=== PATIENT | male | born 1955 | race African-American/Black ===

== ENCOUNTER 2022-06-07 14:20 | Inpatient (IN) | payer MEDICAID ==
[~2022-06-07] VITALS: Ht 182.9 cm; Wt 79.4 kg
[2022-06-07 14:20] VITALS: BP_SYST 186
--- NOTE | 2022-06-07 14:20 | NUR ---
BROUGHT BACK TO BED #8 AND TRIAGED. REPORT GIVEN TO MADI.
--- NOTE | 2022-06-07 14:25 | NUR ---
BIB SELF FROM HOME WITH C/O URINARY PROBLEMS, FLANK PAIN, URINARY RETENTION, AN INDWELLING CATHETHER THAT WAS PLACED IN FEB 2022. HX - URINARY RETENTION. PT IS AAX04, VSS, NAD, BREATHING IS EVEN AND UNLABORED, PT IS ON CARDAIC MONITOR SHOWING NSR. SAFETY AND COMFORT MEASURES IN PLACE. PENDING MD RICE AND ORDERS.
--- NOTE | 2022-06-07 14:26 | NUR ---
AT BEDSIDE EXAMINING THE PT.
--- NOTE | 2022-06-07 14:27 | NUR ---
DR. MORALES INSTRUCTED TO HOLD OFF ON GIVING KAYEXALATE UNTIL THE PT IS READY FOR TRANSFER TO THE ICU UNIT.
[2022-06-07] MEDS ORDERED: IBUPROFEN 800 MG TABLET PO ONE (14:45)
[2022-06-07 15:05] LABS: BASOPHILS % (AUTO) 0.3 % (0.0-2.0); EOSINOPHILS # (AUTO) 0.1 K/uL (0.0-0.4); EOSINOPHILS % (AUTO) 0.5 % (0.0-4.0); HEMATOCRIT 28.9 % (36-54); HEMOGLOBIN 9.5 g/dL (14.0-18.0); LYMPHOCYTES # (AUTO) 0.9 K/uL (1.0-5.5); LYMPHOCYTES % (AUTO) 8.3 % (20.5-51.5); MEAN CORPUSCULAR HEMOGLOBIN 31 pg (27-31); MEAN CORPUSCULAR HGB CONC 33 % (32-36); MEAN CORPUSCULAR VOLUME 94 fL (79.0-98.0); MONOCYTES # (AUTO) 1.1 K/uL (0.0-1.0); MONOCYTES % (AUTO) 10.1 % (1.7-9.3); NEUTROPHILS # (AUTO) 8.5 K/uL (1.8-7.7); NEUTROPHILS % (AUTO) 80.8 % (40.0-70.0); PLATELET COUNT (AUTO) 252 K/uL (130-430); RED BLOOD CELL COUNT(AUTO) 3.08 MIL/uL (4.2-6.2); RED CELL DISTRIBUTION WIDTH 15.3 % (9.0-15.0); WHITE BLOOD COUNT (AUTO) 10.5 K/uL (4.8-10.8)
[2022-06-07 15:20] LABS: CREATININE 3.92 mg/dL (0.55-1.30)
[2022-06-07 15:25] LABS: ALBUMIN 2.5 g/dL (3.4-4.8); TOTAL BILIRUBIN 0.4 mg/dL (0.0-1.0)
[2022-06-07 15:33] LABS: BILIRUBIN,URINE NEGATIVE (NEGATIVE); BLOOD, URINE 2+ (NEGATIVE); CLARITY/URINE CLOUDY (CLEAR); COLOR,URINE YELLOW (YELLOW); GLUCOSE,URINE TRACE (NEGATIVE); KETONES,URINE NEGATIVE (NEGATIVE); LEUKOCYTE ESTERASE ,URINE 3+ (NEGATIVE); NITRITE, URINE NEGATIVE (NEGATIVE); PH,URINE 6.5 (5.0-8.0); PROTEIN URINE 3+ (NEGATIVE); UROBILINOGEN,URINE 0.2 (0.2-1.0)
[2022-06-07 15:48] LABS: BACTERIA,URINE FEW /HPF (None Seen); MUCUS,URINE None Seen /LPF (None Seen); WBC,URINE >100 /HPF (0-3)
[2022-06-07] MEDS ORDERED: SODIUM POLYSTYRENE SULFONATE 15 GM/60 ML UDBTL PO ONE (16:00)
[2022-06-07] MEDS ORDERED: cefTRIAXone 1 GM in D5W 50 ML IV ONE (16:00)
[2022-06-07] MEDS ORDERED: NACL 0.9% 1,000 ML IV ONE (16:00)
[2022-06-07] MEDS ORDERED: cefTRIAXone 1 GM VIAL ONE (16:45)
--- NOTE | 2022-06-07 17:10 | NUR ---
NOTIFIED ED ADMITTING, KAILYN, REGARDING DR. ALTAMIRANO'S REQUEST FOR ADMISSION/TRANSFER. PER DR. ALTAMIRANO, PT IS STABLE FOR TRANSFER. WILL CONTACT PLANT TENDER REGARDING THIS MATTER. PER [facility]: [facility]
--- NOTE | 2022-06-07 17:16 | NUR ---
KAILYN, ED ADMITTING, [facility]ATED [facility] CLOS[facility] FOR THE DAY AND TO CALL ADULT BASIC EDUCATION TEACHER FOR ADMISSION AND SHE WILL FAX FACESHEET TO [facility].
[2022-06-07] MEDS ORDERED: DEXTROSE 50% JECT 50 ML DISP.SYRIN IVP PRN (18:00)
[2022-06-07] MEDS ORDERED: LORazepam 2 MG/ML VIAL IVP PRN (18:00)
[2022-06-07] MEDS ORDERED: ONDANSETRON HCL 4 MG/2 ML VIAL IVP PRN (18:00)
[2022-06-07] MEDS ORDERED: MUPIROCIN 2% TOPICAL OINTMENT 22 GM NS PRN (18:00)
[2022-06-07] MEDS ORDERED: MAGNESIUM SULFATE 50 ML IV PRN (18:00)
[2022-06-07] MEDS ORDERED: DOCUSATE SODIUM 100 MG CAPSULE PO PRN (18:00)
[2022-06-07] MEDS ORDERED: ACETAMINOPHEN 325 MG TABLET PO PRN ×2 (18:00→18:45)
[2022-06-07] MEDS ORDERED: POTASSIUM CHLORIDE 20 MEQ TAB.PRT.SR PO PRN (18:00)
[2022-06-07] MEDS ORDERED: MORPHINE 2 MG/ML INJ. SYRINGE IVP PRN ×2 (18:00)
[2022-06-07] MEDS ORDERED: METOPROLOL TARTRATE 25 MG TABLET PO ONE (18:45)
[2022-06-07] MEDS ORDERED: KETOROLAC TROMETHAMINE 30 MG VIAL IVP ONE (18:45)
[2022-06-07] MEDS ORDERED: SODIUM POLYSTYRENE SULFONATE 15 GM/60 ML UDBTL ONE (18:53)
[2022-06-07] MEDS: NACL 0.9% 1,000 ML IV SCH (19:00)
--- NOTE | 2022-06-07 20:02 | NUR ---
Admit bed requested Patient will be admitted to care of Dr. ELLIS. Admitted to TELEMETRY unit. Diagnosis URINARY TRACT INFECTION Inpatient (Yes or No) YES Observation (Yes or No) NO Orientation concerns or request close to nursing station (Yes or No) NO Covid Status NEGATIVE On vent or bipap NO Isolation requirements NO Needs a sitter NO From Home (Yes or if No enter name of facility) YES Requires Dialysis (Yes or No) NO Med Rec Completed (Yes of No) YES
[2022-06-07] MEDS ORDERED: LIDOCAINE 2% JELLY UROJECT 10 ML MM ONE (20:15)
--- NOTE | 2022-06-07 20:31 | NUR ---
PATIENT RESTING IN BED WITH FAMILY AT BEDSIDE, UPDATED ON PLAN OF CARE. PATIENT REMAINS ALERT AND ORIENTED X 4 , NO S/S OF ANY RESPIRATORY DISTRESS NOTED ABD SOFT NONTENDER TO PALPATION WITH POSITIVE BOWEL SOUNDS, IVF INFUING PER ORDER, AWARE WILL BE ADMITTED TO THE HOSPITAL. WILL CONTINUE TO MONITOR.
--- NOTE | 2022-06-07 20:49 | NUR ---
ROSARIO #[id number] INSERTED PER ORDER.
[2022-06-07] MEDS ORDERED: HEPARIN SODIUM,PORCINE 5,000 UNITS/ML VIAL SUBCUT SCH (21:00)
--- NOTE | 2022-06-07 22:40 | NUR ---
Patient continues to rest without c/o family remains at bedside, belongings list done at this time.
--- NOTE | 2022-06-07 23:19 | NUR ---
PATIENT REMAINS STABLE FOR TRANSPORT TO UNIT.
--- NOTE | 2022-06-08 | NUR ---
PT ADMITTED FROM ED, PATIENT RESTING IN BED WITH FAMILY AT BEDSIDE, PT ALERT AND ORIENTED X 4 , NO S/S OF ANY RESPIRATORY DISTRESS NOTED ABD SOFT NONTENDER TO PALPATION WITH POSITIVE BOWEL SOUNDS, PT AMBULATORY, IVF INFUING PER ORDER, AWARE WILL BE ADMITTED TO THE HOSPITAL. WILL CONTINUE TO MONITOR.
[2022-06-08 00:08] VITALS: BP_SYST 166
[2022-06-08] MEDS: ZOLPIDEM TARTRATE 5 MG TABLET PO PRN ×2 (01:01→22:00)
[2022-06-08] MEDS: cloNIDine HCL 0.1 MG TABLET PO PRN (01:02)
[2022-06-08] MEDS: NACL 0.9% 1,000 ML IV SCH ×2 (05:13→17:45)
[2022-06-08 07:35] LABS: BASOPHILS % (AUTO) 0.5 % (0.0-2.0); EOSINOPHILS # (AUTO) 0.2 K/uL (0.0-0.4); EOSINOPHILS % (AUTO) 2.8 % (0.0-4.0); HEMATOCRIT 25.4 % (36-54); HEMOGLOBIN 8.5 g/dL (14.0-18.0); LYMPHOCYTES # (AUTO) 1.4 K/uL (1.0-5.5); LYMPHOCYTES % (AUTO) 21.4 % (20.5-51.5); MEAN CORPUSCULAR HEMOGLOBIN 31 pg (27-31); MEAN CORPUSCULAR HGB CONC 33 % (32-36); MEAN CORPUSCULAR VOLUME 94 fL (79.0-98.0); MONOCYTES # (AUTO) 0.8 K/uL (0.0-1.0); MONOCYTES % (AUTO) 12.1 % (1.7-9.3); NEUTROPHILS # (AUTO) 4.1 K/uL (1.8-7.7); NEUTROPHILS % (AUTO) 63.2 % (40.0-70.0); PLATELET COUNT (AUTO) 196 K/uL (130-430); RED BLOOD CELL COUNT(AUTO) 2.71 MIL/uL (4.2-6.2); RED CELL DISTRIBUTION WIDTH 15.1 % (9.0-15.0); WHITE BLOOD COUNT (AUTO) 6.5 K/uL (4.8-10.8)
--- NOTE | 2022-06-08 08:30 | NUR ---
Patient stable; resting quietly in bed with no distress noted and no complaint of pain at this time.
[2022-06-08 08:32] LABS: CALCIUM 7.3 mg/dL (8.4-11.0); CREATININE 3.92 mg/dL (0.55-1.30)
--- NOTE | 2022-06-08 09:10 | NUR ---
Patient resting in bed with Dr. Serna at bedside.
[2022-06-08] MEDS ORDERED: IPRATROPIUM/ALBUTEROL SULFATE 3 ML AMPUL.NEB (DUONEB) INH PRN (09:30)
--- NOTE | 2022-06-08 09:47 | NUR ---
CONSULTATION PAGED/CALLED Reason for Consultation: [] INDWELLING ROSARIO CAUSING UTI Person Who was Notified: [] RADHA Consulting Physician: [] Harriet ROGERS Oncology Consultant Specialty: [] UROLOGIST Ordering Physician: [] DR FONSECA
[2022-06-08] MEDS: LOSARTAN POTASSIUM 50 MG TABLET (COZAAR) PO SCH ×2 (10:29→22:01)
[2022-06-08] MEDS ORDERED: LOSARTAN POTASSIUM 50 MG TABLET (COZAAR) ONE (10:29)
--- NOTE | 2022-06-08 10:29 | NUR ---
Scheduled medications given per order. Patient stable at this time.
[2022-06-08] MEDS: METOPROLOL TARTRATE 50 MG TABLET PO SCH ×2 (10:30→22:00)
[2022-06-08 11:30] VITALS: BP_SYST 139
--- NOTE | 2022-06-08 11:38 | NUR ---
Checked blood sugar: 143 mg/dl - no coverage required. Patient stable; resting comfortably in bed at this time.
--- NOTE | 2022-06-08 12:45 | NUR ---
Patient eating lunch at this time. Urine sample collected per order. Patient stable.
--- NOTE | 2022-06-08 13:59 | NUR ---
Social Service Assessment: The patient is a 66-year-old male who is alert and oriented. I completed an initial assessment at bedside. At the time of my visit, the patient was tired, but was in agreement with engaging in conversation with me. The patient resides in a single-story home with his mother. At home, the patient states he was using no assistive dives prior to his admission here at the hospital. He was independent with his care needs, still working, and able to drive. The patient states his support system is his mother. He does not have a Power of Textile Colorist Formulator, nor a PCP. Information was provided to the patient on he he can get an assigned PCP for himself. The plan is to return home with his mother. The patient was advised that at time of discharge, he will be assessed for appropriate needs and services. Per patient, there are no anticipated discharge needs. The patient is in agreement to the discharge plan. At time of discharge, the patient states he may need assistance with transport home. I advised him that should it transportation be necessary, transportation arrangements can be made for [employer] through the hospital. Addendum: 06/08/22 at 1406 by Latonya CARROLL Amended: Links added.
--- NOTE | 2022-06-08 14:07 | NUR ---
At the request of the patient, information on accepting PCPs who are contracted with this hospital and assigned to the patient's medical insurance were provided to the patient.
--- NOTE | 2022-06-08 14:25 | NUR ---
Patient asleep at this time with no distress noted; stable.
[2022-06-08] MEDS: HYDROcodone/ACETAMIN 5-325 MG TAB (NORCO/ VICODIN) PO PRN ×2 (14:58→22:01)
[2022-06-08 14:59] LABS: BARBITURATE, URINE NEGATIVE (NEG <=200); BENZODIAZEPINE, URINE NEGATIVE (NEG <=150); METHAMPHETAMINES SCREEN,URINE NEGATIVE (NEG <=500); URINE AMPHETAMINE NEGATIVE (NEG <=500); URINE METHADONE NEGATIVE (NEG <=200)
[2022-06-08 15:00] LABS: CANNABINOID, URINE POSITIVE (NEG <=50); COCAINE, URINE POSITIVE (NEG <=150); OPIATE, URINE NEGATIVE (NEG <=100); PHENCYCLIDINE SCREEN,URINE NEGATIVE (NEG <=25); UR TRICYCLIC ANTIDEPRESSANTS NEGATIVE (NEG <=300); URINE OXYCODONE SCREEN NEGATIVE (NEG <=100); URINE PROPOXYPHENE SCREEN NEGATIVE (NEG <=300)
--- NOTE | 2022-06-08 15:00 | NUR ---
Patient medicated for 6/10 pain in bilateral legs. Patient stable at this time.
[2022-06-08 15:48] VITALS: BP_SYST 138
--- NOTE | 2022-06-08 16:00 | NUR ---
Patient asleep at this time.
--- NOTE | 2022-06-08 17:40 | NUR ---
Scheduled IV abx given per order. Checked blood sugar: 121 mg/dl - no coverage required. Patient stable at this time. Addendum: 06/08/22 at 1810 by Diamond Avila RN [id number]: Started new IVF bag
[2022-06-08] MEDS: cefTRIAXone 1 GM in D5W 50 ML IV SCH (17:41)
--- NOTE | 2022-06-08 18:55 | NUR ---
Patient stable throughout shift.
--- NOTE | 2022-06-08 19:19 | NUR ---
CONSULTATION PAGED/CALLED Reason for Consultation: CHF Person Who was Notified: FUAD Consulting Physician: DR. Taniya CLEANING Railroad Signal And Switch Operator Specialty: CARDIOLOGY Ordering Physician: DR. FONSECA
[2022-06-08 20:00] VITALS: BP_SYST 133
--- NOTE | 2022-06-08 20:28 | NUR ---
RECEIVED PT LYING IN BED, NO DISTRESS NOTED, DENIES PAIN. AAOX4, O2 SAT 97% ON RA. ADVENTITIOUS LUNG SOUNDS. IV TO RT AC A BIT SWOLLEN. STOPPED IV RE EVALUATE PATENCY. F/C DRAINING BROOK COLOR URINE. WEAK PULSES TO BLE.
[2022-06-08 23:14] VITALS: BP_SYST 133
[2022-06-09 01:09] VITALS: BP_SYST 122
--- NOTE | 2022-06-09 07:35 | NUR ---
MORNING ROUNDS: PATIENT RESTING DURING ROUNDS. IV FLUIDS RUNNING AT RIGHT HAND INTACT. ROOM AIR. ROSARIO DRAINING TO BROOK URINE IN MODERATION,INTACT. NOT IN ANY DISTRESS.
[2022-06-09 07:41] LABS: BASOPHILS % (AUTO) 0.5 % (0.0-2.0); EOSINOPHILS # (AUTO) 0.1 K/uL (0.0-0.4); EOSINOPHILS % (AUTO) 1.9 % (0.0-4.0); HEMATOCRIT 28.5 % (36-54); HEMOGLOBIN 9.5 g/dL (14.0-18.0); LYMPHOCYTES # (AUTO) 1.4 K/uL (1.0-5.5); LYMPHOCYTES % (AUTO) 23.4 % (20.5-51.5); MEAN CORPUSCULAR HEMOGLOBIN 31 pg (27-31); MEAN CORPUSCULAR HGB CONC 33 % (32-36); MEAN CORPUSCULAR VOLUME 94 fL (79.0-98.0); MONOCYTES # (AUTO) 0.7 K/uL (0.0-1.0); MONOCYTES % (AUTO) 11.2 % (1.7-9.3); NEUTROPHILS # (AUTO) 3.7 K/uL (1.8-7.7); PLATELET COUNT (AUTO) 238 K/uL (130-430); RED BLOOD CELL COUNT(AUTO) 3.04 MIL/uL (4.2-6.2); RED CELL DISTRIBUTION WIDTH 15.7 % (9.0-15.0); WHITE BLOOD COUNT (AUTO) 5.8 K/uL (4.8-10.8)
[2022-06-09 08:05] LABS: CALCIUM 8.1 mg/dL (8.4-11.0); CREATININE 4.08 mg/dL (0.55-1.30)
[2022-06-09 10:13] VITALS: BP_SYST 138
[2022-06-09] MEDS: METOPROLOL TARTRATE 50 MG TABLET PO SCH (10:15)
[2022-06-09] MEDS: HYDROcodone/ACETAMIN 5-325 MG TAB (NORCO/ VICODIN) PO PRN ×2 (10:15→18:34)
[2022-06-09] MEDS: LOSARTAN POTASSIUM 50 MG TABLET (COZAAR) PO SCH (10:16)
[2022-06-09] MEDS: TAMSULOSIN HCL 0.4 MG CAP PO SCH (10:20)
--- NOTE | 2022-06-09 11:30 | NUR ---
BLOOD SUGAR: BLOOD SUGAR =67MG/DL. PATIENT AWAKE,ALERT AND ORIENTED X4. GAVE 2 CUPS OF ORANGE JUICE.THEN RECHECKED BLOOD SUGAR AFTER 20MINS ,BS=94MG/DL.
[2022-06-09 12:30] VITALS: BP_SYST 138
[2022-06-09] MEDS: NACL 0.9% 1,000 ML IV SCH (13:00)
[2022-06-09 16:08] VITALS: BP_SYST 147
--- NOTE | 2022-06-09 16:24 | NUR ---
WITH VISITORS: WITH FAMILY VISITORS AT THE BEDSIDE.
[2022-06-09] MEDS ORDERED: FUROSEMIDE 40 MG/4 ML VIAL IVP ONE (16:30)
[2022-06-09] MEDS ORDERED: SODIUM POLYSTYRENE SULFONATE 15 GM/60 ML UDBTL PO ONE (16:30)
--- NOTE | 2022-06-09 17:00 | NUR ---
BLOOD SUGAR: BLOOD SUGAR TAKEN. NO INSULIN NEEDED PER SLIDING SCALE.
[2022-06-09] MEDS: cefTRIAXone 1 GM in D5W 50 ML IV SCH (18:11)
--- NOTE | 2022-06-09 19:07 | NUR ---
END OF SHIFT: PATIENT WITH VISITOR'S AT THE BEDSIDE. COMFORTABLE. NOT IN ANY DISTRESS.
[2022-06-09] MEDS: ZOLPIDEM TARTRATE 5 MG TABLET PO PRN (22:59)
--- NOTE | 2022-06-10 07:30 | NUR ---
MORNING ROUNDS: PATIENT RESTING DURING ROUNDS. IV TO TKO AT RIGHT AC,INTACT. CALL LIGHT WITH IN REACH. BED LOCKED AT LOWEST POSITION. ROSARIO DRAINING TO BROOK URINE. NO ACUTE DISTRESS.
[2022-06-10 07:57] LABS: BASOPHILS % (AUTO) 0.8 % (0.0-2.0); EOSINOPHILS # (AUTO) 0.2 K/uL (0.0-0.4); EOSINOPHILS % (AUTO) 3.6 % (0.0-4.0); HEMOGLOBIN 9.6 g/dL (14.0-18.0); LYMPHOCYTES # (AUTO) 1.5 K/uL (1.0-5.5); LYMPHOCYTES % (AUTO) 25.6 % (20.5-51.5); MEAN CORPUSCULAR HEMOGLOBIN 31 pg (27-31); MEAN CORPUSCULAR HGB CONC 33 % (32-36); MEAN CORPUSCULAR VOLUME 93 fL (79.0-98.0); MONOCYTES # (AUTO) 0.6 K/uL (0.0-1.0); MONOCYTES % (AUTO) 10.6 % (1.7-9.3); NEUTROPHILS # (AUTO) 3.4 K/uL (1.8-7.7); NEUTROPHILS % (AUTO) 59.4 % (40.0-70.0); PLATELET COUNT (AUTO) 264 K/uL (130-430); RED BLOOD CELL COUNT(AUTO) 3.12 MIL/uL (4.2-6.2); RED CELL DISTRIBUTION WIDTH 14.9 % (9.0-15.0); WHITE BLOOD COUNT (AUTO) 5.8 K/uL (4.8-10.8)
[2022-06-10 08:06] LABS: % FREE PSA 24.1 % (.); FREE PSA 1.47 ng/mL; PROSTATE SPECIFIC AG TOTAL 6.1 ng/mL (0.0-4.0)
[2022-06-10 08:08] LABS: CREATININE 4.19 mg/dL (0.55-1.30)
[2022-06-10] MEDS: TAMSULOSIN HCL 0.4 MG CAP PO SCH (10:32)
[2022-06-10] MEDS: METOPROLOL SUCCINATE 50 MG TAB.SR.24H (TOPROL XL) PO SCH (10:32)
[2022-06-10] MEDS: HYDROcodone/ACETAMIN 5-325 MG TAB (NORCO/ VICODIN) PO PRN (10:34)
[2022-06-10] MEDS: cloNIDine HCL 0.1 MG TABLET PO PRN ×2 (11:46→21:15)
[2022-06-10 11:48] VITALS: BP_SYST 170
--- NOTE | 2022-06-10 12:30 | NUR ---
IV OUT: PATIENT REMOVED THE IV ACCESS. RN TO INSERT LATER.
[2022-06-10] MEDS ORDERED: FUROSEMIDE 20 MG/2 ML VIAL IVP ONE (14:15)
[2022-06-10] MEDS ORDERED: ISOSORBIDE MONONITRATE 30 MG TAB.ER.24H PO ONE (14:15)
[2022-06-10] MEDS: cefTRIAXone 1 GM in D5W 50 ML IV SCH (17:20)
[2022-06-10 17:21] VITALS: BP_SYST 150
--- NOTE | 2022-06-10 17:30 | NUR ---
IV NOTES: IV RE SITED AT RIGHT FOREARM USING G#22,IV ANTIBIOTIC GIVEN ORDERED. NO PROBLEM.
--- NOTE | 2022-06-10 19:15 | NUR ---
EVENING ROUNDS; ENDORSED TO NIGHT NURSE MEHUL,PATIENT IN STABLE CONDITION. NO ACUTE DISTRESS.
[2022-06-10 20:00] VITALS: BP_SYST 182
[2022-06-10] MEDS ORDERED: MORPHINE 2 MG/ML INJ. SYRINGE IVP ONE (20:45)
[2022-06-10] MEDS: FUROSEMIDE 20 MG/2 ML VIAL IVP SCH (21:15)
[2022-06-10] MEDS: ZOLPIDEM TARTRATE 5 MG TABLET PO PRN (21:15)
[2022-06-10] MEDS: INSULIN LISPRO SLIDING SCALE 100 UNITS/ML, 3 ML VIAL (humaLOG) SUBCUT PRN (21:26)
[2022-06-11 00:15] VITALS: BP_SYST 129
--- NOTE | 2022-06-11 05:35 | NUR ---
OPENING ROUNDS; Patient received from AM shift nurse during rounds. Patient is AA&ox4 able to make needs known and has call light within reach. Safety measures are in place as per protocol, care was resumed. 0: Patient was assessed as indicated and received 2100 scheduled medications ordered. during 1999 V/S were noted to be elevated. Patient reported that he was in excruciating pain and that PO PRN was no sufficient. Dr. Serna was notified and received a x1 order for IV pain relief. Patient received PRN HTN medication and PRN pain relief IV during 2100 meds. Patient is now in bed with family at bedside. 0030: Patient is in bed resting with no s/s of distress noted. BP is noted to now be WNL. Will continue to monitor.
[2022-06-11 06:28] LABS: BASOPHILS % (AUTO) 0.6 % (0.0-2.0); EOSINOPHILS # (AUTO) 0.2 K/uL (0.0-0.4); EOSINOPHILS % (AUTO) 5.3 % (0.0-4.0); HEMATOCRIT 26.5 % (36-54); HEMOGLOBIN 8.9 g/dL (14.0-18.0); LYMPHOCYTES # (AUTO) 1.2 K/uL (1.0-5.5); MEAN CORPUSCULAR HEMOGLOBIN 31 pg (27-31); MEAN CORPUSCULAR HGB CONC 34 % (32-36); MEAN CORPUSCULAR VOLUME 92 fL (79.0-98.0); MONOCYTES # (AUTO) 0.5 K/uL (0.0-1.0); NEUTROPHILS # (AUTO) 2.6 K/uL (1.8-7.7); NEUTROPHILS % (AUTO) 57.1 % (40.0-70.0); PLATELET COUNT (AUTO) 257 K/uL (130-430); RED BLOOD CELL COUNT(AUTO) 2.88 MIL/uL (4.2-6.2); RED CELL DISTRIBUTION WIDTH 15.1 % (9.0-15.0); WHITE BLOOD COUNT (AUTO) 4.6 K/uL (4.8-10.8)
[2022-06-11 06:51] LABS: CALCIUM 7.4 mg/dL (8.4-11.0); CREATININE 4.67 mg/dL (0.55-1.30)
[2022-06-11 08:11] VITALS: BP_SYST 161
[2022-06-11] MEDS ORDERED: CIPR250T4 PO (08:37)
[2022-06-11] MEDS ORDERED: TAMS-11 PO (08:38)
[2022-06-11] MEDS ORDERED: ISOS30TA85 PO (08:42)
[2022-06-11] MEDS ORDERED: EPOETIN ALFA-EPBX 4,000 UNITS/ML VIAL SUBCUT SCH ×2 (09:00→17:00)
[2022-06-11] MEDS: FUROSEMIDE 20 MG/2 ML VIAL IVP SCH ×2 (10:12→21:00)
[2022-06-11] MEDS: TAMSULOSIN HCL 0.4 MG CAP PO SCH (10:12)
[2022-06-11] MEDS: METOPROLOL SUCCINATE 50 MG TAB.SR.24H (TOPROL XL) PO SCH (10:13)
[2022-06-11] MEDS: ISOSORBIDE MONONITRATE 30 MG TAB.ER.24H PO SCH (10:13)
[2022-06-11] MEDS: HYDROcodone/ACETAMIN 5-325 MG TAB (NORCO/ VICODIN) PO PRN ×2 (10:19→21:05)
[2022-06-11 10:27] VITALS: BP_SYST 161
[2022-06-11 11:50] VITALS: BP_SYST 137
--- NOTE | 2022-06-11 12:50 | NUR ---
CARDIO ROUNDS BARRY Maravilla at bedside at this time. New orders given.
[2022-06-11] MEDS: INSULIN LISPRO SLIDING SCALE 100 UNITS/ML, 3 ML VIAL (humaLOG) SUBCUT PRN ×2 (12:56→21:12)
[2022-06-11] MEDS ORDERED: *HEPARIN PER PHARMACY XX ONE (13:00)
--- NOTE | 2022-06-11 13:03 | NUR ---
JET HERRERA Spoke to exchange. Dr. Kareem barone at this time.
--- NOTE | 2022-06-11 13:30 | NUR ---
COMMUNICATION Spoke to Dr. Serna. Orders given.
[2022-06-11] MEDS ORDERED: SACUBITRIL/VALSARTAN 24 MG-26 MG 1 TABLET PO ONE (14:00)
[2022-06-11] MEDS ORDERED: HEPARIN SODIUM,PORCINE 5,000 UNITS/ML VIAL IVP ONE (15:15)
[2022-06-11] MEDS ORDERED: HEPARIN SODIUM,PORCINE 2000 UNITS/0.4 ML BOLUS IVP PRN (15:15)
[2022-06-11 16:00] VITALS: BP_SYST 147
[2022-06-11] MEDS: HEPARIN 25,000 UNITS in 250 ML PREMIX IV PRN (16:43)
[2022-06-11] MEDS: cefTRIAXone 1 GM in D5W 50 ML IV SCH (19:11)
[2022-06-11 20:00] VITALS: BP_SYST 183
[2022-06-11] MEDS ORDERED: SACUBITRIL/VALSARTAN 24 MG-26 MG 1 TABLET PO SCH (21:00)
[2022-06-11] MEDS: ZOLPIDEM TARTRATE 5 MG TABLET PO PRN (21:00)
[2022-06-11] MEDS: cloNIDine HCL 0.1 MG TABLET PO PRN (21:04)
--- NOTE | 2022-06-11 23:48 | NUR ---
OPENING NOTES: 1999: Patient received from AM shift. Patient is AA&Ox4 able to make needs known, describes a constant pain from a tooth ache that MD is aware of, but denies CP or SOB and has call light within reach. Chest rise is even and unlabored on RA. Patient was received on a Heparin Drip that was started at 1643 at a rate of 1,100 units per hr/ 11ml/hr as per protocol. PTT lab is noted to be schedule for 2229 and dosage will be adjusted per protocol. No s/s of bleeding is noted and patient is tolerating it well. Safety measures are in place as per protocol, will resume care and continue to monitor. 0: Patient has been assessed as indicated and 2100 scheduled medications has been administered as ordered. Patient BP was noted elevated at 1999 so PRN clonidine was administered as well as PRN sleep aid and pain medication. Patient tolerated it well. LAB was called for scheduled time draw. 2300: Lab Collected PTT lab
[2022-06-12 00:27] VITALS: BP_SYST 157
[2022-06-12] MEDS: HEPARIN SODIUM,PORCINE 3000 UNITS/0.6 ML BOLUS IVP PRN ×2 (00:55→10:02)
[2022-06-12] MEDS: HEPARIN 25,000 UNITS in 250 ML PREMIX IV PRN ×2 (00:56→10:03)
--- NOTE | 2022-06-12 01:16 | NUR ---
HEPARIN: Heparin adjusted as per protocol. PTT was 27.2 as per protocol 3,000 UNITS of Heparin IVP were given and IV titration was adjusted from 1,100 to 1,300 units per hour. Addendum: 06/12/22 at 0118 by Rafa Munoz RN RN LAB SCHEDULED for 629
--- NOTE | 2022-06-12 06:26 | NUR ---
CLOSING NOTES: Patient is in bed resting no s/s of distress is noted at this time. During last round patient reported that he felt wet, when I assessed him I noted that patient had pulled out PIV that was started at 0030. Second PIV was started on Rwrist 22g and heparin was restarted as ordered. Patient has timed lab draw for PTT scheduled at 0630. Patient was assisted to change linen and gown. All current shift needs have been met at this time. Will differ care to AM shift nurse for continuity of care.
[2022-06-12 07:40] VITALS: BP_SYST 142
[2022-06-12 07:42] LABS: CALCIUM 7.6 mg/dL (8.4-11.0); CREATININE 4.6 mg/dL (0.55-1.30)
[2022-06-12 07:45] LABS: BASOPHILS % (AUTO) 0.6 % (0.0-2.0); EOSINOPHILS # (AUTO) 0.3 K/uL (0.0-0.4); EOSINOPHILS % (AUTO) 5.6 % (0.0-4.0); HEMATOCRIT 28.5 % (36-54); HEMOGLOBIN 9.6 g/dL (14.0-18.0); LYMPHOCYTES # (AUTO) 1.2 K/uL (1.0-5.5); LYMPHOCYTES % (AUTO) 26.6 % (20.5-51.5); MEAN CORPUSCULAR HEMOGLOBIN 31 pg (27-31); MEAN CORPUSCULAR HGB CONC 34 % (32-36); MEAN CORPUSCULAR VOLUME 93 fL (79.0-98.0); MONOCYTES # (AUTO) 0.5 K/uL (0.0-1.0); MONOCYTES % (AUTO) 11.8 % (1.7-9.3); NEUTROPHILS # (AUTO) 2.5 K/uL (1.8-7.7); NEUTROPHILS % (AUTO) 55.4 % (40.0-70.0); PLATELET COUNT (AUTO) 264 K/uL (130-430); RED BLOOD CELL COUNT(AUTO) 3.08 MIL/uL (4.2-6.2); RED CELL DISTRIBUTION WIDTH 15.5 % (9.0-15.0); WHITE BLOOD COUNT (AUTO) 4.5 K/uL (4.8-10.8)
[2022-06-12] MEDS: FUROSEMIDE 20 MG/2 ML VIAL IVP SCH (09:00)
[2022-06-12] MEDS: ISOSORBIDE MONONITRATE 30 MG TAB.ER.24H PO SCH (09:22)
[2022-06-12] MEDS: METOPROLOL SUCCINATE 50 MG TAB.SR.24H (TOPROL XL) PO SCH (09:22)
[2022-06-12] MEDS: TAMSULOSIN HCL 0.4 MG CAP PO SCH (09:22)
[2022-06-12] MEDS: HYDROcodone/ACETAMIN 5-325 MG TAB (NORCO/ VICODIN) PO PRN (09:28)
--- NOTE | 2022-06-12 10:05 | NUR ---
Call to MD regarding troponin and request from charge nurse to add telemetry.
[2022-06-12] MEDS ORDERED: METO50TA7 PO (10:20)
[2022-06-12] MEDS ORDERED: ASPI-1393 PO (10:20)
[2022-06-12] MEDS ORDERED: FURO-150 PO (10:21)
[2022-06-12 10:40] VITALS: BP_SYST 140
== END 2022-06-12 11:30 | disposition home or self-care (01) | DRG 466 ==
LOC: SED 14:20 → STU 17:56 → SMU 06-08 15:26
PROVIDERS: ADMIT General Practice; ATTEND General Practice
PROC: 0T2BX0Z Change Drainage Device in Bladder, External Approach (ICD-10-PCS; principal; 2022-06-07)
DX: T83.511A Infection and inflammatory reaction due to indwelling urethral catheter, initial encounter (principal); N17.0 Acute kidney failure with tubular necrosis; I21.4 Non-ST elevation (NSTEMI) myocardial infarction; I50.43 Acute on chronic combined systolic (congestive) and diastolic (congestive) heart failure; I16.0 Hypertensive urgency; E87.5 Hyperkalemia; I13.0 Hypertensive heart and chronic kidney disease with heart failure and stage 1 through stage 4 chronic kidney disease, or unspecified chronic kidney disease; N39.0 Urinary tract infection, site not specified; R33.9 Retention of urine, unspecified; R31.9 Hematuria, unspecified; Z20.822 Contact with and (suspected) exposure to COVID-19; F14.10 Cocaine abuse, uncomplicated; F12.10 Cannabis abuse, uncomplicated; E11.22 Type 2 diabetes mellitus with diabetic chronic kidney disease; I50.9 Heart failure, unspecified; F17.210 Nicotine dependence, cigarettes, uncomplicated; N18.9 Chronic kidney disease, unspecified; Z90.49 Acquired absence of other specified parts of digestive tract; Z91.14 Patient's other noncompliance with medication regimen; Z91.199 Patient's noncompliance with other medical treatment and regimen due to unspecified reason
CPT/HCPCS: 36415; 71045; 76770; 80048; 80053; 80307; 81000; 82330; 82962; 83037; 83735; 83880; 84153; 84484; 85025; 85730-TC; 87086; 93005; 93306; 96365; 96372; 96375; 99285; G0378; J0696; J1644; J1885; J1940; J2270; J7060; Q5106

== ENCOUNTER 2022-08-08 13:26 | Inpatient (IN) | payer OTHER, MEDICAID ==
[~2022-08-08] VITALS: Ht 177.8 cm; Wt 75.5 kg
[~2022-08-08 13:26] MED LIST: ASPI-1393 PO; CIPR250T4 PO; FURO-150 PO; ISOS30TA85 PO; METO50TA7 PO; TAMS-11 PO
[2022-08-08 13:54] VITALS: BP_SYST 169
[2022-08-08 14:42] LABS: BASOPHILS % (AUTO) 0.4 % (0.0-2.0); EOSINOPHILS # (AUTO) 0.3 K/uL (0.0-0.4); EOSINOPHILS % (AUTO) 4.2 % (0.0-4.0); HEMOGLOBIN 10.2 g/dL (14.0-18.0); LYMPHOCYTES # (AUTO) 1.1 K/uL (1.0-5.5); LYMPHOCYTES % (AUTO) 16.4 % (20.5-51.5); MEAN CORPUSCULAR HEMOGLOBIN 30 pg (27-31); MEAN CORPUSCULAR HGB CONC 32 % (32-36); MEAN CORPUSCULAR VOLUME 92 fL (79.0-98.0); MONOCYTES # (AUTO) 0.6 K/uL (0.0-1.0); NEUTROPHILS # (AUTO) 4.5 K/uL (1.8-7.7); PLATELET COUNT (AUTO) 210 K/uL (130-430); RED BLOOD CELL COUNT(AUTO) 3.47 MIL/uL (4.2-6.2); RED CELL DISTRIBUTION WIDTH 15.2 % (9.0-15.0); WHITE BLOOD COUNT (AUTO) 6.4 K/uL (4.8-10.8)
[2022-08-08 14:56] LABS: PROTHROMBIN TIME 10.4 SECS (9.5-12.5)
[2022-08-08 15:02] LABS: ALANINE AMINOTRANSFERASE 33 U/L (12-78); ALBUMIN 2.5 g/dL (3.4-4.8); ANION GAP 12 (5-15); ASPARTATE AMINOTRANSFERASE 35 U/L (10-37); CALCIUM 7.5 mg/dL (8.4-11.0); CHLORIDE 108 mmol/L (98-107); CREATININE 4.12 mg/dL (0.55-1.30); GFR AFRICAN AMERICAN 19 mL/min (>90); GLUCOSE 113 mg/dL (70-99); TOTAL BILIRUBIN 0.3 mg/dL (0.0-1.0); UREA NITROGEN, BLOOD 55 mg/dL (8-21)
[2022-08-08] MEDS ORDERED: INSULIN REGULAR, HUMAN 10 UNITS/0.1 ML, 3 ML VIAL IVP ONE (15:45)
[2022-08-08] MEDS ORDERED: CALCIUM GLUCONATE 2 GM in NS 100 ML IV ONE (15:45)
[2022-08-08] MEDS ORDERED: DEXTROSE 50% JECT 50 ML DISP.SYRIN IVP ONE (15:45)
[2022-08-08] MEDS ORDERED: CALCIUM GLUCONATE 1 GM/10 ML VIAL ONE (16:03)
[2022-08-08] MEDS ORDERED: DEXTROSE 50% JECT 50 ML DISP.SYRIN ONE (16:09)
[2022-08-08] MEDS ORDERED: MORPHINE 4 MG INJ. 4 MG/ML VIAL IVP ONE (16:15)
[2022-08-08] MEDS ORDERED: CALCIUM GLUCONATE 1 GM/10 ML VIAL IVP ONE ×2 (16:15)
[2022-08-08] MEDS ORDERED: SODIUM POLYSTYRENE SULFONATE 15 GM/60 ML UDBTL PO ONE (17:15)
[2022-08-08] MEDS ORDERED: ISOSORBIDE MONONITRATE 30 MG TAB.ER.24H PO ONE (18:30)
[2022-08-08] MEDS ORDERED: CARV12.548 PO (18:44)
[2022-08-08] MEDS ORDERED: HYDR-4039 PO (18:44)
[2022-08-08] MEDS ORDERED: POTA8TAB66 PO (18:44)
[2022-08-08] MEDS ORDERED: NIFE20CA PO (18:44)
[2022-08-08] MEDS ORDERED: TAMS-11 PO (18:44)
[2022-08-08] MEDS ORDERED: ACET160S2 PO (18:44)
[2022-08-08] MEDS ORDERED: CEFPODOXIME PO (18:44)
[2022-08-08] MEDS ORDERED: ISOS30TA85 PO (18:44)
[2022-08-08] MEDS ORDERED: CYCL10TA24 PO (18:44)
[2022-08-08 18:49] VITALS: BP_SYST 190
[2022-08-08] MEDS: cloNIDine HCL 0.2 MG TABLET PO PRN (20:37)
[2022-08-08 23:03] VITALS: BP_SYST 199
[2022-08-08 23:18] LABS: CREATININE 3.91 mg/dL (0.55-1.30)
[2022-08-09] VITALS (14 sets, daily range): BP systolic 131–207
[2022-08-09] MEDS ORDERED: cloNIDine HCL 0.2 MG TABLET PO ONE (00:15)
[2022-08-09] MEDS ORDERED: SODIUM POLYSTYRENE SULFONATE 15 GM/60 ML UDBTL PO ONE (00:15)
[2022-08-09] MEDS ORDERED: MILK OF MAGNESIA 30 ML UDC PO ONE (00:45)
[2022-08-09] MEDS: NITROGLYCERIN 1 INCH (GM) OINT. TP SCH ×3 (01:15→11:44)
[2022-08-09] MEDS ORDERED: SODIUM POLYSTYRENE SULFONATE 15 GM/60 ML UDBTL ONE (02:45)
[2022-08-09 07:41] LABS: BASOPHILS % (AUTO) 0.6 % (0.0-2.0); EOSINOPHILS # (AUTO) 0.4 K/uL (0.0-0.4); EOSINOPHILS % (AUTO) 6.7 % (0.0-4.0); HEMATOCRIT 29.1 % (36-54); HEMOGLOBIN 9.5 g/dL (14.0-18.0); LYMPHOCYTES # (AUTO) 1.5 K/uL (1.0-5.5); MEAN CORPUSCULAR HEMOGLOBIN 30 pg (27-31); MEAN CORPUSCULAR HGB CONC 33 % (32-36); MEAN CORPUSCULAR VOLUME 92 fL (79.0-98.0); MONOCYTES # (AUTO) 0.5 K/uL (0.0-1.0); MONOCYTES % (AUTO) 9.5 % (1.7-9.3); NEUTROPHILS # (AUTO) 3.2 K/uL (1.8-7.7); NEUTROPHILS % (AUTO) 56.2 % (40.0-70.0); PLATELET COUNT (AUTO) 199 K/uL (130-430); RED BLOOD CELL COUNT(AUTO) 3.18 MIL/uL (4.2-6.2); WHITE BLOOD COUNT (AUTO) 5.6 K/uL (4.8-10.8)
[2022-08-09 08:04] LABS: CALCIUM 7.3 mg/dL (8.4-11.0); CREATININE 3.78 mg/dL (0.55-1.30); TOTAL BILIRUBIN 0.3 mg/dL (0.0-1.0)
[2022-08-09] MEDS: cloNIDine HCL 0.2 MG TABLET PO PRN ×2 (08:14→14:26)
[2022-08-09] MEDS ORDERED: NITROGLYCERIN 250 ML IV PRN ×2 (13:15→19:30)
[2022-08-09] MEDS ORDERED: INSULIN ASPART 100 UNITS/ML, 10 ML VIAL (NovoLOG) SUBCUT PRN (15:15)
[2022-08-09] MEDS ORDERED: NIFEdipine 30 MG TAB.ER.24 PO ONE (15:30)
[2022-08-09 16:43] LABS: BILIRUBIN,URINE NEGATIVE (NEGATIVE); BLOOD, URINE 1+ (NEGATIVE); CLARITY/URINE CLEAR (CLEAR); COLOR,URINE YELLOW (YELLOW); GLUCOSE,URINE TRACE (NEGATIVE); KETONES,URINE NEGATIVE (NEGATIVE); LEUKOCYTE ESTERASE ,URINE TRACE (NEGATIVE); NITRITE, URINE NEGATIVE (NEGATIVE); PH,URINE 6.5 (5.0-8.0); PROTEIN URINE 3+ (NEGATIVE); UROBILINOGEN,URINE 0.2 (0.2-1.0)
[2022-08-09 17:34] LABS: BACTERIA,URINE FEW /HPF (None Seen); MUCUS,URINE None Seen /LPF (None Seen)
[2022-08-09] MEDS: BUMETANIDE 0.25 MG/ML; 10 ML VIAL IVP SCH (20:56)
[2022-08-09] MEDS: LABETALOL HCL 100 MG TABLET PO SCH (20:57)
[2022-08-10] VITALS (31 sets, daily range): BP systolic 130–161
[2022-08-10 06:03] LABS: ALBUMIN 1.9 g/dL (3.4-4.8); CREATININE 3.61 mg/dL (0.55-1.30); TOTAL BILIRUBIN 0.3 mg/dL (0.0-1.0)
[2022-08-10 06:12] LABS: CALCIUM 6.9 mg/dL (8.4-11.0)
[2022-08-10] MEDS ORDERED: DEXTROSE 50%-WATER 50 ML DISP.SYRIN IVP PRN (08:45)
[2022-08-10] MEDS ORDERED: GLUCOSE (DEXTROSE) ORAL GEL -Adults PO PRN (08:45)
[2022-08-10] MEDS ORDERED: D5W 1,000 ML IV PRN (08:45)
[2022-08-10 09:10] LABS: BASOPHILS % (AUTO) 0.7 % (0.0-2.0); EOSINOPHILS # (AUTO) 0.3 K/uL (0.0-0.4); EOSINOPHILS % (AUTO) 5.7 % (0.0-4.0); HEMOGLOBIN 9.7 g/dL (14.0-18.0); LYMPHOCYTES # (AUTO) 1.5 K/uL (1.0-5.5); LYMPHOCYTES % (AUTO) 29.3 % (20.5-51.5); MEAN CORPUSCULAR HEMOGLOBIN 30 pg (27-31); MEAN CORPUSCULAR HGB CONC 32 % (32-36); MEAN CORPUSCULAR VOLUME 92 fL (79.0-98.0); MONOCYTES # (AUTO) 0.4 K/uL (0.0-1.0); MONOCYTES % (AUTO) 8.7 % (1.7-9.3); NEUTROPHILS # (AUTO) 2.8 K/uL (1.8-7.7); NEUTROPHILS % (AUTO) 55.6 % (40.0-70.0); PLATELET COUNT (AUTO) 208 K/uL (130-430); RED BLOOD CELL COUNT(AUTO) 3.27 MIL/uL (4.2-6.2); RED CELL DISTRIBUTION WIDTH 15.3 % (9.0-15.0)
[2022-08-10] MEDS ORDERED: TAMSULOSIN HCL 0.4 MG CAP PO ONE (09:30)
[2022-08-10] MEDS: BUMETANIDE 0.25 MG/ML; 10 ML VIAL IVP SCH ×2 (09:58→21:27)
[2022-08-10] MEDS: NIFEdipine 30 MG TAB.ER.24 PO SCH (10:00)
[2022-08-10] MEDS: LABETALOL HCL 100 MG TABLET PO SCH ×3 (10:00→21:29)
[2022-08-10] MEDS ORDERED: SODIUM POLYSTYRENE SULFONATE 15 GM/60 ML UDBTL PO ONE (11:15)
[2022-08-10] MEDS: traMADol HCL HCL 50 MG TABLET (ULTRAM) PO PRN ×2 (12:06→21:30)
[2022-08-10] MEDS: cefTRIAXone 1 GM in D5W 50 ML IV SCH (15:26)
[2022-08-10 18:27] LABS: CREATININE 3.61 mg/dL (0.55-1.30)
[2022-08-10 19:00] LABS: BASOPHILS % (AUTO) 0.4 % (0.0-2.0); EOSINOPHILS # (AUTO) 0.3 K/uL (0.0-0.4); EOSINOPHILS % (AUTO) 4.8 % (0.0-4.0); HEMATOCRIT 29.4 % (36-54); HEMOGLOBIN 9.5 g/dL (14.0-18.0); LYMPHOCYTES # (AUTO) 1.2 K/uL (1.0-5.5); MEAN CORPUSCULAR HEMOGLOBIN 30 pg (27-31); MEAN CORPUSCULAR HGB CONC 32 % (32-36); MEAN CORPUSCULAR VOLUME 92 fL (79.0-98.0); MONOCYTES # (AUTO) 0.5 K/uL (0.0-1.0); MONOCYTES % (AUTO) 7.8 % (1.7-9.3); NEUTROPHILS # (AUTO) 4.9 K/uL (1.8-7.7); PLATELET COUNT (AUTO) 186 K/uL (130-430); RED BLOOD CELL COUNT(AUTO) 3.21 MIL/uL (4.2-6.2); RED CELL DISTRIBUTION WIDTH 15.2 % (9.0-15.0)
[2022-08-10 21:04] LABS: CREATININE CLEARANCE,URINE 9.6 ml/min (80-120); CREATININE,URINE 22.9 MG/DL (30-125)
[2022-08-11] VITALS (14 sets, daily range): BP systolic 130–164
[2022-08-11 05:40] LABS: BASOPHILS % (AUTO) 0.7 % (0.0-2.0); EOSINOPHILS # (AUTO) 0.3 K/uL (0.0-0.4); EOSINOPHILS % (AUTO) 5.5 % (0.0-4.0); HEMATOCRIT 28.6 % (36-54); HEMOGLOBIN 9.4 g/dL (14.0-18.0); LYMPHOCYTES # (AUTO) 1.3 K/uL (1.0-5.5); LYMPHOCYTES % (AUTO) 25.4 % (20.5-51.5); MEAN CORPUSCULAR HEMOGLOBIN 30 pg (27-31); MEAN CORPUSCULAR HGB CONC 33 % (32-36); MEAN CORPUSCULAR VOLUME 91 fL (79.0-98.0); MONOCYTES # (AUTO) 0.5 K/uL (0.0-1.0); NEUTROPHILS # (AUTO) 2.9 K/uL (1.8-7.7); NEUTROPHILS % (AUTO) 58.4 % (40.0-70.0); PLATELET COUNT (AUTO) 197 K/uL (130-430); RED BLOOD CELL COUNT(AUTO) 3.15 MIL/uL (4.2-6.2); WHITE BLOOD COUNT (AUTO) 4.9 K/uL (4.8-10.8)
[2022-08-11 06:18] LABS: ALBUMIN 1.9 g/dL (3.4-4.8); CALCIUM 7.1 mg/dL (8.4-11.0); CREATININE 3.78 mg/dL (0.55-1.30); TOTAL BILIRUBIN 0.3 mg/dL (0.0-1.0)
[2022-08-11] MEDS: LABETALOL HCL 100 MG TABLET PO SCH ×3 (08:59→21:15)
[2022-08-11] MEDS: BUMETANIDE 0.25 MG/ML; 10 ML VIAL IVP SCH ×2 (09:00→21:16)
[2022-08-11] MEDS: TAMSULOSIN HCL 0.4 MG CAP PO SCH (09:01)
[2022-08-11] MEDS: NIFEdipine 30 MG TAB.ER.24 PO SCH (09:01)
[2022-08-11] MEDS: cefTRIAXone 1 GM in D5W 50 ML IV SCH (14:37)
[2022-08-11] MEDS: INSULIN LISPRO SLIDING SCALE 100 UNITS/ML, 3 ML VIAL (humaLOG) SUBCUT PRN ×2 (17:40→21:26)
[2022-08-12 00:30] VITALS: BP_SYST 149
[2022-08-12 08:00] VITALS: BP_SYST 156
[2022-08-12 08:02] LABS: BASOPHILS % (AUTO) 0.4 % (0.0-2.0); EOSINOPHILS # (AUTO) 0.3 K/uL (0.0-0.4); EOSINOPHILS % (AUTO) 5.6 % (0.0-4.0); HEMATOCRIT 29.7 % (36-54); HEMOGLOBIN 9.9 g/dL (14.0-18.0); LYMPHOCYTES # (AUTO) 1.3 K/uL (1.0-5.5); LYMPHOCYTES % (AUTO) 21.1 % (20.5-51.5); MEAN CORPUSCULAR HEMOGLOBIN 30 pg (27-31); MEAN CORPUSCULAR HGB CONC 34 % (32-36); MEAN CORPUSCULAR VOLUME 90 fL (79.0-98.0); MONOCYTES # (AUTO) 0.5 K/uL (0.0-1.0); MONOCYTES % (AUTO) 9.1 % (1.7-9.3); NEUTROPHILS # (AUTO) 3.8 K/uL (1.8-7.7); NEUTROPHILS % (AUTO) 63.8 % (40.0-70.0); PLATELET COUNT (AUTO) 199 K/uL (130-430); RED CELL DISTRIBUTION WIDTH 14.7 % (9.0-15.0)
[2022-08-12 08:11] LABS: ALANINE AMINOTRANSFERASE 30 U/L (12-78); ALBUMIN 2.1 g/dL (3.4-4.8); ANION GAP 10 (5-15); ASPARTATE AMINOTRANSFERASE 32 U/L (10-37); CALCIUM 7.3 mg/dL (8.4-11.0); CHLORIDE 106 mmol/L (98-107); CREATININE 3.81 mg/dL (0.55-1.30); GFR AFRICAN AMERICAN 21 mL/min (>90); GLUCOSE 82 mg/dL (70-99); PHOSPHORUS 4.7 mg/dL (2.7-4.5); TOTAL BILIRUBIN 0.3 mg/dL (0.0-1.0); UREA NITROGEN, BLOOD 43 mg/dL (8-21)
[2022-08-12 08:13] LABS: C-REACTIVE PROTEIN QUANT < 0.2 mg/dL (0-0.5)
[2022-08-12] MEDS: LABETALOL HCL 100 MG TABLET PO SCH ×3 (08:32→22:17)
[2022-08-12] MEDS: TAMSULOSIN HCL 0.4 MG CAP PO SCH (08:32)
[2022-08-12] MEDS: NIFEdipine 30 MG TAB.ER.24 PO SCH (08:32)
[2022-08-12] MEDS: BUMETANIDE 0.25 MG/ML; 10 ML VIAL IVP SCH ×2 (08:33→22:16)
[2022-08-12 08:49] LABS: ERYTHROCYTE SEDIMENTATION RATE 33 MM/HR (0-15)
[2022-08-12] MEDS ORDERED: cloNIDine HCL 0.2 MG TABLET PO ONE (11:45)
[2022-08-12 12:43] VITALS: BP_SYST 146
[2022-08-12] MEDS: cefTRIAXone 1 GM in D5W 50 ML IV SCH (13:06)
[2022-08-12 16:00] VITALS: BP_SYST 130
[2022-08-12] MEDS: INSULIN LISPRO SLIDING SCALE 100 UNITS/ML, 3 ML VIAL (humaLOG) SUBCUT PRN ×2 (17:17→23:41)
[2022-08-12 20:00] VITALS: BP_SYST 114
[2022-08-12] MEDS ORDERED: ACETAMINOPHEN 325 MG TABLET PO PRN (22:15)
[2022-08-12] MEDS: cloNIDine HCL 0.2 MG TABLET PO SCH (22:17)
[2022-08-12 23:30] VITALS: BP_SYST 141
[2022-08-12] MEDS: HYDROcodone/ACETAMIN 10-325 MG TAB PO PRN (23:36)
[2022-08-13 04:45] LABS: BASOPHILS % (AUTO) 0.4 % (0.0-2.0); EOSINOPHILS # (AUTO) 0.3 K/uL (0.0-0.4); EOSINOPHILS % (AUTO) 4.8 % (0.0-4.0); HEMATOCRIT 28.3 % (36-54); HEMOGLOBIN 9.5 g/dL (14.0-18.0); LYMPHOCYTES # (AUTO) 1.3 K/uL (1.0-5.5); LYMPHOCYTES % (AUTO) 17.6 % (20.5-51.5); MEAN CORPUSCULAR HEMOGLOBIN 30 pg (27-31); MEAN CORPUSCULAR HGB CONC 33 % (32-36); MEAN CORPUSCULAR VOLUME 90 fL (79.0-98.0); MONOCYTES # (AUTO) 0.6 K/uL (0.0-1.0); MONOCYTES % (AUTO) 8.7 % (1.7-9.3); NEUTROPHILS # (AUTO) 4.9 K/uL (1.8-7.7); NEUTROPHILS % (AUTO) 68.5 % (40.0-70.0); PLATELET COUNT (AUTO) 204 K/uL (130-430); RED BLOOD CELL COUNT(AUTO) 3.14 MIL/uL (4.2-6.2); RED CELL DISTRIBUTION WIDTH 14.8 % (9.0-15.0); WHITE BLOOD COUNT (AUTO) 7.1 K/uL (4.8-10.8)
[2022-08-13 05:09] LABS: ALBUMIN 1.9 g/dL (3.4-4.8); CREATININE 3.89 mg/dL (0.55-1.30); PHOSPHORUS 5.2 mg/dL (2.7-4.5); TOTAL BILIRUBIN 0.2 mg/dL (0.0-1.0)
[2022-08-13 05:38] LABS: CALCIUM 6.8 mg/dL (8.4-11.0)
[2022-08-13] MEDS ORDERED: CALCIUM GLUCONATE 2 GM in NS 100 ML IV ONE (06:15)
[2022-08-13 08:00] VITALS: BP_SYST 157
[2022-08-13] MEDS: TAMSULOSIN HCL 0.4 MG CAP PO SCH (08:54)
[2022-08-13] MEDS: NIFEdipine 30 MG TAB.ER.24 PO SCH ×2 (08:54→21:30)
[2022-08-13] MEDS: cloNIDine HCL 0.2 MG TABLET PO SCH ×2 (08:54→21:29)
[2022-08-13] MEDS: LABETALOL HCL 100 MG TABLET PO SCH ×3 (08:55→21:31)
[2022-08-13] MEDS: BUMETANIDE 0.25 MG/ML; 10 ML VIAL IVP SCH ×2 (09:21→21:35)
[2022-08-13] MEDS ORDERED: CALCIUM GLUCONATE 1 GM/10 ML VIAL IVP ONE (11:30)
[2022-08-13] MEDS ORDERED: calcitrioL 0.25 MCG CAPSULE PO ONE (11:30)
[2022-08-13 11:38] VITALS: BP_SYST 160
[2022-08-13] MEDS: CALCIUM ACETATE 667 MG CAP PO SCH ×2 (11:57→18:13)
[2022-08-13 12:03] LABS: PROTHROMBIN TIME 10.5 SECS (9.5-12.5)
[2022-08-13] MEDS: HYDROcodone/ACETAMIN 10-325 MG TAB PO PRN (12:08)
[2022-08-13 20:01] VITALS: BP_SYST 148
[2022-08-14 01:00] VITALS: BP_SYST 143
[2022-08-14] MEDS: INSULIN LISPRO SLIDING SCALE 100 UNITS/ML, 3 ML VIAL (humaLOG) SUBCUT PRN ×4 (01:12→22:31)
[2022-08-14 08:20] LABS: ALBUMIN 1.9 g/dL (3.4-4.8); CALCIUM 7.2 mg/dL (8.4-11.0); CREATININE 3.95 mg/dL (0.55-1.30); PHOSPHORUS 5.3 mg/dL (2.7-4.5); TOTAL BILIRUBIN 0.3 mg/dL (0.0-1.0)
[2022-08-14 08:27] LABS: BASOPHILS # (AUTO) 0.1 K/uL (0.0-0.2); BASOPHILS % (AUTO) 0.7 % (0.0-2.0); EOSINOPHILS # (AUTO) 0.4 K/uL (0.0-0.4); EOSINOPHILS % (AUTO) 4.8 % (0.0-4.0); HEMATOCRIT 30.7 % (36-54); HEMOGLOBIN 10.1 g/dL (14.0-18.0); LYMPHOCYTES # (AUTO) 1.2 K/uL (1.0-5.5); LYMPHOCYTES % (AUTO) 15.6 % (20.5-51.5); MEAN CORPUSCULAR HEMOGLOBIN 30 pg (27-31); MEAN CORPUSCULAR HGB CONC 33 % (32-36); MEAN CORPUSCULAR VOLUME 91 fL (79.0-98.0); MONOCYTES # (AUTO) 0.6 K/uL (0.0-1.0); MONOCYTES % (AUTO) 7.2 % (1.7-9.3); NEUTROPHILS # (AUTO) 5.6 K/uL (1.8-7.7); NEUTROPHILS % (AUTO) 71.7 % (40.0-70.0); PLATELET COUNT (AUTO) 221 K/uL (130-430); RED BLOOD CELL COUNT(AUTO) 3.37 MIL/uL (4.2-6.2); RED CELL DISTRIBUTION WIDTH 14.8 % (9.0-15.0); WHITE BLOOD COUNT (AUTO) 7.8 K/uL (4.8-10.8)
[2022-08-14] MEDS: CALCIUM ACETATE 667 MG CAP PO SCH ×3 (09:35→17:16)
[2022-08-14] MEDS: LABETALOL HCL 100 MG TABLET PO SCH ×3 (09:36→22:06)
[2022-08-14] MEDS: TAMSULOSIN HCL 0.4 MG CAP PO SCH (09:36)
[2022-08-14] MEDS: NIFEdipine 30 MG TAB.ER.24 PO SCH ×2 (09:36→22:07)
[2022-08-14] MEDS: cloNIDine HCL 0.2 MG TABLET PO SCH ×2 (09:37→22:08)
[2022-08-14] MEDS: calcitrioL 0.25 MCG CAPSULE PO SCH (09:38)
[2022-08-14] MEDS: BUMETANIDE 0.25 MG/ML; 10 ML VIAL IVP SCH ×2 (10:10→22:09)
[2022-08-14 11:38] VITALS: BP_SYST 141
[2022-08-14 16:50] VITALS: BP_SYST 136
[2022-08-14 17:03] LABS: PROTHROMBIN TIME 10.6 SECS (9.5-12.5)
[2022-08-14 20:00] VITALS: BP_SYST 120
[2022-08-15] VITALS: BP_SYST 127
[2022-08-15 04:00] VITALS: BP_SYST 133
[2022-08-15 07:19] LABS: CALCIUM 7.1 mg/dL (8.4-11.0); CREATININE 3.91 mg/dL (0.55-1.30)
[2022-08-15 07:22] LABS: BASOPHILS % (AUTO) 0.5 % (0.0-2.0); EOSINOPHILS # (AUTO) 0.4 K/uL (0.0-0.4); EOSINOPHILS % (AUTO) 6.8 % (0.0-4.0); HEMATOCRIT 27.9 % (36-54); HEMOGLOBIN 9.3 g/dL (14.0-18.0); LYMPHOCYTES # (AUTO) 1.5 K/uL (1.0-5.5); LYMPHOCYTES % (AUTO) 23.1 % (20.5-51.5); MEAN CORPUSCULAR HEMOGLOBIN 30 pg (27-31); MEAN CORPUSCULAR HGB CONC 33 % (32-36); MEAN CORPUSCULAR VOLUME 91 fL (79.0-98.0); MONOCYTES # (AUTO) 0.6 K/uL (0.0-1.0); MONOCYTES % (AUTO) 8.9 % (1.7-9.3); NEUTROPHILS # (AUTO) 3.8 K/uL (1.8-7.7); NEUTROPHILS % (AUTO) 60.7 % (40.0-70.0); PLATELET COUNT (AUTO) 224 K/uL (130-430); RED BLOOD CELL COUNT(AUTO) 3.08 MIL/uL (4.2-6.2); WHITE BLOOD COUNT (AUTO) 6.3 K/uL (4.8-10.8)
[2022-08-15 08:00] VITALS: BP_SYST 138
[2022-08-15] MEDS: BUMETANIDE 0.25 MG/ML; 10 ML VIAL IVP SCH ×2 (09:00→22:25)
[2022-08-15] MEDS: CALCIUM ACETATE 667 MG CAP PO SCH ×3 (09:17→17:04)
[2022-08-15] MEDS: TAMSULOSIN HCL 0.4 MG CAP PO SCH (09:17)
[2022-08-15] MEDS: calcitrioL 0.25 MCG CAPSULE PO SCH (09:17)
[2022-08-15] MEDS: cloNIDine HCL 0.2 MG TABLET PO SCH ×2 (09:18→21:47)
[2022-08-15] MEDS: LABETALOL HCL 100 MG TABLET PO SCH ×3 (09:18→21:46)
[2022-08-15] MEDS: NIFEdipine 30 MG TAB.ER.24 PO SCH ×2 (09:19→21:45)
[2022-08-15] MEDS: INSULIN LISPRO SLIDING SCALE 100 UNITS/ML, 3 ML VIAL (humaLOG) SUBCUT PRN ×2 (11:41→22:01)
[2022-08-15 12:00] VITALS: BP_SYST 135
[2022-08-15 17:08] VITALS: BP_SYST 137
[2022-08-15 20:00] VITALS: BP_SYST 124
[2022-08-16] VITALS: BP_SYST 131
[2022-08-16 03:58] LABS: BASOPHILS % (AUTO) 0.3 % (0.0-2.0); EOSINOPHILS # (AUTO) 0.4 K/uL (0.0-0.4); EOSINOPHILS % (AUTO) 5.2 % (0.0-4.0); HEMATOCRIT 28.8 % (36-54); HEMOGLOBIN 9.6 g/dL (14.0-18.0); LYMPHOCYTES # (AUTO) 1.3 K/uL (1.0-5.5); LYMPHOCYTES % (AUTO) 18.2 % (20.5-51.5); MEAN CORPUSCULAR HEMOGLOBIN 30 pg (27-31); MEAN CORPUSCULAR HGB CONC 33 % (32-36); MEAN CORPUSCULAR VOLUME 90 fL (79.0-98.0); MONOCYTES # (AUTO) 0.7 K/uL (0.0-1.0); MONOCYTES % (AUTO) 9.6 % (1.7-9.3); NEUTROPHILS # (AUTO) 4.7 K/uL (1.8-7.7); NEUTROPHILS % (AUTO) 66.7 % (40.0-70.0); PLATELET COUNT (AUTO) 210 K/uL (130-430); RED BLOOD CELL COUNT(AUTO) 3.19 MIL/uL (4.2-6.2); RED CELL DISTRIBUTION WIDTH 14.9 % (9.0-15.0)
[2022-08-16 04:14] LABS: CALCIUM 7.2 mg/dL (8.4-11.0); CREATININE 4.13 mg/dL (0.55-1.30)
[2022-08-16] MEDS: CALCIUM ACETATE 667 MG CAP PO SCH ×3 (08:00→18:00)
[2022-08-16] MEDS: LABETALOL HCL 100 MG TABLET PO SCH ×3 (09:00→21:08)
[2022-08-16] MEDS: TAMSULOSIN HCL 0.4 MG CAP PO SCH (09:00)
[2022-08-16] MEDS: cloNIDine HCL 0.2 MG TABLET PO SCH ×2 (09:00→21:10)
[2022-08-16] MEDS: NIFEdipine 30 MG TAB.ER.24 PO SCH ×2 (09:00→21:08)
[2022-08-16] MEDS: BUMETANIDE 0.25 MG/ML; 10 ML VIAL IVP SCH ×2 (10:20→22:19)
[2022-08-16] MEDS: HYDROcodone/ACETAMIN 10-325 MG TAB PO PRN ×3 (11:12→21:09)
[2022-08-16] MEDS: calcitrioL 0.25 MCG CAPSULE PO SCH (11:12)
[2022-08-16] MEDS ORDERED: fentaNYL CITRATE/PF 100 MCG/2 ML AMP ONE (11:46)
[2022-08-16] MEDS ORDERED: HEPARIN SODIUM,PORCINE 5,000 UNITS/ML VIAL ONE ×2 (11:46→17:21)
[2022-08-16] MEDS ORDERED: WATER FOR IRRIGATION,STERILE 1,000 ML IRRIG.SOLN IR ONE (11:46)
[2022-08-16] MEDS ORDERED: NS 100 ML BAG ONE (11:46)
[2022-08-16] MEDS ORDERED: PROPOFOL 200MG/ 20ML VIAL (DIPRIVAN) IV ONE (11:46)
[2022-08-16] MEDS ORDERED: LIDOCAINE 1% 10 MG/ML, 20 ML MDV ONE (11:46)
[2022-08-16] MEDS ORDERED: CEFAZOLIN 1 GM IVPB PREMIX 50 ML IV ONE (11:46)
[2022-08-16 11:59] LABS: URINE SODIUM, RANDOM 89 mmol/L (40-220)
[2022-08-16 12:06] LABS: HEPATITIS A AB, IgM Negative (Negative); HEPATITIS B CORE AB, IgM Negative (Negative); HEPATITIS B SURFACE AG Negative (Negative)
[2022-08-16 12:54] VITALS: BP_SYST 149
[2022-08-16 16:38] VITALS: BP_SYST 151
[2022-08-16] MEDS ORDERED: HEPARIN SODIUM,PORCINE 5,000 UNITS/ML VIAL MC ONE (17:30)
[2022-08-16] MEDS: INSULIN LISPRO SLIDING SCALE 100 UNITS/ML, 3 ML VIAL (humaLOG) SUBCUT PRN (17:33)
[2022-08-16 20:00] VITALS: BP_SYST 140
[2022-08-17 00:46] VITALS: BP_SYST 162
[2022-08-17 01:06] LABS: CREATININE, URINE 32.5 mg/dL (Not Estab.); MICROALBUMIN URINE RANDOM 1035.1 ug/mL (Not Estab.)
[2022-08-17] MEDS: INSULIN LISPRO SLIDING SCALE 100 UNITS/ML, 3 ML VIAL (humaLOG) SUBCUT PRN ×3 (06:41→21:39)
[2022-08-17 08:15] VITALS: BP_SYST 163
[2022-08-17] MEDS: BUMETANIDE 0.25 MG/ML; 10 ML VIAL IVP SCH ×2 (09:00→21:06)
[2022-08-17] MEDS: HYDROcodone/ACETAMIN 10-325 MG TAB PO PRN (10:04)
[2022-08-17] MEDS: TAMSULOSIN HCL 0.4 MG CAP PO SCH (10:07)
[2022-08-17] MEDS: calcitrioL 0.25 MCG CAPSULE PO SCH (10:07)
[2022-08-17] MEDS: cloNIDine HCL 0.2 MG TABLET PO SCH ×2 (10:08→21:08)
[2022-08-17] MEDS: LABETALOL HCL 100 MG TABLET PO SCH ×3 (10:08→21:07)
[2022-08-17] MEDS: NIFEdipine 30 MG TAB.ER.24 PO SCH ×2 (10:09→21:06)
[2022-08-17 11:45] VITALS: BP_SYST 151
[2022-08-17] MEDS ORDERED: NEPH PO (12:18)
[2022-08-17] MEDS ORDERED: PHO667 GT (12:19)
[2022-08-17] MEDS: CALCIUM ACETATE 667 MG CAP PO SCH ×3 (12:48→18:39)
[2022-08-17] MEDS: HYDROcodone/ACETAMIN 5-325 MG TAB (NORCO/ VICODIN) PO PRN (12:55)
[2022-08-17 18:55] VITALS: BP_SYST 143
[2022-08-17 19:55] VITALS: BP_SYST 134
[2022-08-18 00:50] VITALS: BP_SYST 141
[2022-08-18 08:00] VITALS: BP_SYST 142
[2022-08-18 08:04] LABS: BASOPHILS % (AUTO) 0.5 % (0.0-2.0); EOSINOPHILS # (AUTO) 0.3 K/uL (0.0-0.4); HEMATOCRIT 30.4 % (36-54); LYMPHOCYTES # (AUTO) 1.5 K/uL (1.0-5.5); LYMPHOCYTES % (AUTO) 21.3 % (20.5-51.5); MEAN CORPUSCULAR HEMOGLOBIN 30 pg (27-31); MEAN CORPUSCULAR HGB CONC 33 % (32-36); MEAN CORPUSCULAR VOLUME 90 fL (79.0-98.0); MONOCYTES # (AUTO) 0.7 K/uL (0.0-1.0); MONOCYTES % (AUTO) 10.1 % (1.7-9.3); NEUTROPHILS # (AUTO) 4.3 K/uL (1.8-7.7); NEUTROPHILS % (AUTO) 63.1 % (40.0-70.0); PLATELET COUNT (AUTO) 186 K/uL (130-430); RED BLOOD CELL COUNT(AUTO) 3.37 MIL/uL (4.2-6.2); RED CELL DISTRIBUTION WIDTH 15.5 % (9.0-15.0); WHITE BLOOD COUNT (AUTO) 6.9 K/uL (4.8-10.8)
[2022-08-18] MEDS: TAMSULOSIN HCL 0.4 MG CAP PO SCH (08:39)
[2022-08-18] MEDS: CALCIUM ACETATE 667 MG CAP PO SCH ×3 (08:40→17:15)
[2022-08-18] MEDS: cloNIDine HCL 0.2 MG TABLET PO SCH ×2 (08:40→21:06)
[2022-08-18] MEDS: calcitrioL 0.25 MCG CAPSULE PO SCH (08:40)
[2022-08-18] MEDS: NIFEdipine 30 MG TAB.ER.24 PO SCH ×2 (08:40→21:07)
[2022-08-18] MEDS: LABETALOL HCL 100 MG TABLET PO SCH ×3 (08:41→21:04)
[2022-08-18] MEDS: HYDROcodone/ACETAMIN 5-325 MG TAB (NORCO/ VICODIN) PO PRN (08:42)
[2022-08-18 08:46] LABS: CALCIUM 7.6 mg/dL (8.4-11.0); CREATININE 3.19 mg/dL (0.55-1.30); THYROID STIMULATING HORMONE 1.5 uIu/mL (0.34-4.82)
[2022-08-18] MEDS: BUMETANIDE 0.25 MG/ML; 10 ML VIAL IVP SCH ×2 (08:50→21:04)
[2022-08-18 12:00] VITALS: BP_SYST 136
[2022-08-18] MEDS: INSULIN LISPRO SLIDING SCALE 100 UNITS/ML, 3 ML VIAL (humaLOG) SUBCUT PRN ×3 (12:06→21:15)
[2022-08-18 16:46] VITALS: BP_SYST 130
[2022-08-18 20:00] VITALS: BP_SYST 132
[2022-08-18] MEDS: HYDROcodone/ACETAMIN 10-325 MG TAB PO PRN (21:06)
[2022-08-19] VITALS (7 sets, daily range): BP systolic 106–147
[2022-08-19] MEDS: HYDROcodone/ACETAMIN 10-325 MG TAB PO PRN ×3 (06:17→17:32)
[2022-08-19] MEDS: INSULIN LISPRO SLIDING SCALE 100 UNITS/ML, 3 ML VIAL (humaLOG) SUBCUT PRN ×3 (06:22→17:41)
[2022-08-19 07:25] LABS: BASOPHILS % (AUTO) 0.5 % (0.0-2.0); EOSINOPHILS # (AUTO) 0.4 K/uL (0.0-0.4); EOSINOPHILS % (AUTO) 5.8 % (0.0-4.0); HEMATOCRIT 29.4 % (36-54); HEMOGLOBIN 9.7 g/dL (14.0-18.0); LYMPHOCYTES # (AUTO) 1.4 K/uL (1.0-5.5); LYMPHOCYTES % (AUTO) 21.2 % (20.5-51.5); MEAN CORPUSCULAR HEMOGLOBIN 30 pg (27-31); MEAN CORPUSCULAR HGB CONC 33 % (32-36); MEAN CORPUSCULAR VOLUME 90 fL (79.0-98.0); MONOCYTES # (AUTO) 0.7 K/uL (0.0-1.0); MONOCYTES % (AUTO) 10.4 % (1.7-9.3); NEUTROPHILS # (AUTO) 4.2 K/uL (1.8-7.7); NEUTROPHILS % (AUTO) 62.1 % (40.0-70.0); PLATELET COUNT (AUTO) 188 K/uL (130-430); RED BLOOD CELL COUNT(AUTO) 3.26 MIL/uL (4.2-6.2); RED CELL DISTRIBUTION WIDTH 14.9 % (9.0-15.0); WHITE BLOOD COUNT (AUTO) 6.7 K/uL (4.8-10.8)
[2022-08-19 07:51] LABS: CALCIUM 7.8 mg/dL (8.4-11.0); CREATININE 3.57 mg/dL (0.55-1.30); PHOSPHORUS 4.3 mg/dL (2.7-4.5)
[2022-08-19] MEDS: CALCIUM ACETATE 667 MG CAP PO SCH ×3 (08:42→17:32)
[2022-08-19] MEDS: cloNIDine HCL 0.2 MG TABLET PO SCH ×2 (08:43→20:57)
[2022-08-19] MEDS: NIFEdipine 30 MG TAB.ER.24 PO SCH ×2 (08:44→20:58)
[2022-08-19] MEDS: TAMSULOSIN HCL 0.4 MG CAP PO SCH (08:44)
[2022-08-19] MEDS: LABETALOL HCL 100 MG TABLET PO SCH ×3 (08:45→20:58)
[2022-08-19] MEDS: calcitrioL 0.25 MCG CAPSULE PO SCH (08:45)
[2022-08-19] MEDS: BUMETANIDE 0.25 MG/ML; 10 ML VIAL IVP SCH ×2 (08:47→20:57)
[2022-08-19] MEDS: MORPHINE 2 MG/ML INJ. SYRINGE IVP PRN (20:23)
[2022-08-20] MEDS: MORPHINE 2 MG/ML INJ. SYRINGE IVP PRN ×2 (04:27→09:25)
[2022-08-20 04:48] LABS: BASOPHILS % (AUTO) 0.4 % (0.0-2.0); EOSINOPHILS # (AUTO) 0.4 K/uL (0.0-0.4); EOSINOPHILS % (AUTO) 6.1 % (0.0-4.0); HEMATOCRIT 27.9 % (36-54); HEMOGLOBIN 9.2 g/dL (14.0-18.0); LYMPHOCYTES # (AUTO) 1.3 K/uL (1.0-5.5); LYMPHOCYTES % (AUTO) 19.2 % (20.5-51.5); MEAN CORPUSCULAR HEMOGLOBIN 30 pg (27-31); MEAN CORPUSCULAR HGB CONC 33 % (32-36); MEAN CORPUSCULAR VOLUME 90 fL (79.0-98.0); MONOCYTES # (AUTO) 0.8 K/uL (0.0-1.0); MONOCYTES % (AUTO) 11.6 % (1.7-9.3); NEUTROPHILS # (AUTO) 4.3 K/uL (1.8-7.7); NEUTROPHILS % (AUTO) 62.7 % (40.0-70.0); PLATELET COUNT (AUTO) 182 K/uL (130-430); RED BLOOD CELL COUNT(AUTO) 3.09 MIL/uL (4.2-6.2); RED CELL DISTRIBUTION WIDTH 14.9 % (9.0-15.0); WHITE BLOOD COUNT (AUTO) 6.8 K/uL (4.8-10.8)
[2022-08-20 05:45] LABS: CALCIUM 7.8 mg/dL (8.4-11.0); CREATININE 4.08 mg/dL (0.55-1.30); PHOSPHORUS 4.2 mg/dL (2.7-4.5); TOTAL BILIRUBIN 0.3 mg/dL (0.0-1.0)
[2022-08-20] MEDS: INSULIN LISPRO SLIDING SCALE 100 UNITS/ML, 3 ML VIAL (humaLOG) SUBCUT PRN (05:46)
[2022-08-20 08:00] VITALS: BP_SYST 127
[2022-08-20] MEDS: BUMETANIDE 0.25 MG/ML; 10 ML VIAL IVP SCH (09:00)
[2022-08-20] MEDS: CALCIUM ACETATE 667 MG CAP PO SCH ×2 (09:22→12:04)
[2022-08-20] MEDS: TAMSULOSIN HCL 0.4 MG CAP PO SCH (09:22)
[2022-08-20] MEDS: calcitrioL 0.25 MCG CAPSULE PO SCH (09:22)
[2022-08-20] MEDS: cloNIDine HCL 0.2 MG TABLET PO SCH (09:23)
[2022-08-20] MEDS: LABETALOL HCL 100 MG TABLET PO SCH ×2 (09:24→15:00)
[2022-08-20] MEDS: NIFEdipine 30 MG TAB.ER.24 PO SCH (09:24)
[2022-08-20 11:51] VITALS: BP_SYST 124
[2022-08-20] MEDS ORDERED: HEPARIN SODIUM,PORCINE 5,000 UNITS/ML VIAL SUBCUT ONE (15:45)
[2022-08-20 15:57] VITALS: BP_SYST 150
[2022-08-20 17:25] VITALS: BP_SYST 149
[2022-08-20] MEDS: HYDROcodone/ACETAMIN 10-325 MG TAB PO PRN (17:31)
== END 2022-08-20 17:55 | disposition home health service (06) | DRG 673 ==
LOC: SED 13:26 → MERGE 13:26 → STU 17:15 → SIC 08-09 12:58 → STU 08-11 07:57 → SMU 08-13 16:57
PROVIDERS: ADMIT Specialist; ATTEND Specialist
PROC: 5A1D70Z Performance of Urinary Filtration, Intermittent, Less than 6 Hours Per Day (ICD-10-PCS; 2022-08-15)
PROC: 02HV33Z Insertion of Infusion Device into Superior Vena Cava, Percutaneous Approach (ICD-10-PCS; 2022-08-16)
PROC: B518ZZA Fluoroscopy of Superior Vena Cava, Guidance (ICD-10-PCS; 2022-08-16)
PROC: B548ZZA Ultrasonography of Superior Vena Cava, Guidance (ICD-10-PCS; 2022-08-16)
PROC: 5A1D70Z Performance of Urinary Filtration, Intermittent, Less than 6 Hours Per Day (ICD-10-PCS; 2022-08-16)
PROC: 0JH63XZ Insertion of Tunneled Vascular Access Device into Chest Subcutaneous Tissue and Fascia, Percutaneous Approach (ICD-10-PCS; principal; 2022-08-16 10:45)
PROC: 5A1D70Z Performance of Urinary Filtration, Intermittent, Less than 6 Hours Per Day (ICD-10-PCS; 2022-08-20)
DX: N17.9 Acute kidney failure, unspecified (principal); E43 Unspecified severe protein-calorie malnutrition; I12.0 Hypertensive chronic kidney disease with stage 5 chronic kidney disease or end stage renal disease; I16.1 Hypertensive emergency; E87.20 Acidosis, unspecified; N18.6 End stage renal disease; E87.5 Hyperkalemia; Z99.2 Dependence on renal dialysis; E11.22 Type 2 diabetes mellitus with diabetic chronic kidney disease; E11.65 Type 2 diabetes mellitus with hyperglycemia; D63.1 Anemia in chronic kidney disease; E83.39 Other disorders of phosphorus metabolism; E78.5 Hyperlipidemia, unspecified; I25.10 Atherosclerotic heart disease of native coronary artery without angina pectoris; N40.1 Benign prostatic hyperplasia with lower urinary tract symptoms; R33.9 Retention of urine, unspecified; R53.81 Other malaise; Z20.822 Contact with and (suspected) exposure to COVID-19; E88.09 Other disorders of plasma-protein metabolism, not elsewhere classified; R33.8 Other retention of urine; E83.51 Hypocalcemia; Z79.82 Long term (current) use of aspirin; Z79.899 Other long term (current) drug therapy; Z68.23 Body mass index [BMI] 23.0-23.9, adult; Z79.1 Long term (current) use of non-steroidal anti-inflammatories (NSAID)
CPT/HCPCS: 36415; 71045; 76001; 76770; 80048; 80053; 80074; 81000; 82043; 82533; 82570; 82575; 82962; 83735; 83880; 83970; 84100; 84302; 84443; 84484; 85025; 85610-TC; 85651-TC; 86140; 86162; 86480; 86886; 86900; 86901; 87081; 87086; 90935; 93005; 96374; 96375; 97110-GP; 97112-GP; 97116-GP; 97530-GP; 99291; C1750; G0378; J0610; J0690; J0696; J1644; J1815; J2001; J2270; J2704; J3010; J3490; J7060

== ENCOUNTER 2023-10-01 15:20 | Inpatient (IN) | payer MEDICAID, OTHER ==
[~2023-10-01] VITALS: Ht 180.3 cm; Wt 60.3 kg
[2023-10-01] VITALS (7 sets, daily range): BP systolic 114–168; PULSE 60–99; RESP 16–24; TEMP 98.5–98.6; O2SAT 93–100
[~2023-10-01 15:20] MED LIST changes: +ACET160S2 PO; -ASPI-1393 PO; +CARV12.548 PO; +CEFPODOXIME PO; -CIPR250T4 PO; +CYCL10TA24 PO; -FURO-150 PO; +HYDR50TA44 PO; +NEPH PO; +NIFE20CA PO; +PHO667 GT
[2023-10-01 15:56] LABS: BASOPHILS % (AUTO) 0.3 % (0.0-2.0); HEMATOCRIT 29.1 % (36-54); HEMOGLOBIN 10.2 g/dL (14.0-18.0); LYMPHOCYTES # (AUTO) 0.5 K/uL (1.0-5.5); LYMPHOCYTES % (AUTO) 4.7 % (20.5-51.5); MEAN CORPUSCULAR HEMOGLOBIN 33 pg (27-31); MEAN CORPUSCULAR HGB CONC 35 % (32-36); MEAN CORPUSCULAR VOLUME 95 fL (79.0-98.0); MONOCYTES # (AUTO) 0.9 K/uL (0.0-1.0); MONOCYTES % (AUTO) 9.2 % (1.7-9.3); NEUTROPHILS # (AUTO) 8.2 K/uL (1.8-7.7); NEUTROPHILS % (AUTO) 85.8 % (40.0-70.0); PLATELET COUNT (AUTO) 120 K/uL (130-430); RED BLOOD CELL COUNT(AUTO) 3.05 MIL/uL (4.2-6.2); RED CELL DISTRIBUTION WIDTH 13.9 % (9.0-15.0); WHITE BLOOD COUNT (AUTO) 9.6 K/uL (4.8-10.8)
[2023-10-01 16:16] LABS: ALANINE AMINOTRANSFERASE 25 U/L (12-78); ALBUMIN 2.2 g/dL (3.4-4.8); ANION GAP 9 (5-15); ASPARTATE AMINOTRANSFERASE 31 U/L (10-37); BILIRUBIN,DIRECT 0.2 mg/dL (0.0-0.3); CALCIUM 8.1 mg/dL (8.4-11.0); CARBON DIOXIDE 26 mmol/L (23-29); CHLORIDE 99 mmol/L (98-107); CREATININE 4.63 mg/dL (0.55-1.30); GFR AFRICAN AMERICAN 16 mL/min (>90); GLUCOSE 210 mg/dL (74-106); POTASSIUM 3.5 mmol/L (3.5-5.1); SODIUM SERUM 134 mmol/L (136-145); TOTAL BILIRUBIN 0.5 mg/dL (0.0-1.0); TOTAL PROTEIN, SERUM 6.5 g/dL (6.4-8.3); UREA NITROGEN, BLOOD 38 mg/dL (8-21)
[2023-10-01 16:20] LABS: GFR NON AFRICAN-AMERICAN 14 mL/min (>90)
[2023-10-01] MEDS ORDERED: NALOXONE HCL 0.4 MG/ML AMP (NARCAN) IVP PRN ×3 (19:30→22:15)
[2023-10-01] MEDS: ACETAMINOPHEN 325 MG TABLET PO PRN (20:31)
[2023-10-01] MEDS ORDERED: LORazepam 2 MG/ML VIAL IVP PRN (22:15)
[2023-10-01] MEDS ORDERED: ONDANSETRON HCL 4 MG/2 ML VIAL IVP PRN (22:15)
[2023-10-02] VITALS (24 sets, daily range): BP systolic 90–189; PULSE 85–112; RESP 11–29; TEMP 98.2–101.9; O2SAT 91–96
[2023-10-02] MEDS: INSULIN REGULAR, HUMAN 100 UNITS/ML, 3 ML VIAL (humuLIN R) SUBCUT PRN (00:09)
[2023-10-02] MEDS: hydrALAZINE HCL 20 MG/ML VIAL IVP PRN (02:07)
[2023-10-02] MEDS: MORPHINE 2 MG/ML INJ. SYRINGE IVP PRN (02:18)
[2023-10-02] MEDS: HYDROcodone/ACETAMIN 10-325 MG TAB PO PRN (02:19)
[2023-10-02 04:34] LABS: BASOPHILS % (AUTO) 0.2 % (0.0-2.0); EOSINOPHILS % (AUTO) 0.4 % (0.0-4.0); HEMATOCRIT 28.7 % (36-54); HEMOGLOBIN 9.9 g/dL (14.0-18.0); LYMPHOCYTES # (AUTO) 0.6 K/uL (1.0-5.5); LYMPHOCYTES % (AUTO) 8.2 % (20.5-51.5); MEAN CORPUSCULAR HEMOGLOBIN 33 pg (27-31); MEAN CORPUSCULAR HGB CONC 35 % (32-36); MEAN CORPUSCULAR VOLUME 95 fL (79.0-98.0); MONOCYTES # (AUTO) 0.8 K/uL (0.0-1.0); MONOCYTES % (AUTO) 11.5 % (1.7-9.3); NEUTROPHILS # (AUTO) 5.5 K/uL (1.8-7.7); NEUTROPHILS % (AUTO) 79.7 % (40.0-70.0); PLATELET COUNT (AUTO) 121 K/uL (130-430); RED BLOOD CELL COUNT(AUTO) 3.03 MIL/uL (4.2-6.2); RED CELL DISTRIBUTION WIDTH 13.8 % (9.0-15.0)
[2023-10-02 05:17] LABS: ALBUMIN 2.1 g/dL (3.4-4.8); CALCIUM 7.9 mg/dL (8.4-11.0); CREATININE 5.31 mg/dL (0.55-1.30); PHOSPHORUS 3.9 mg/dL (2.7-4.5); POTASSIUM 3.5 mmol/L (3.5-5.1); TOTAL BILIRUBIN 0.4 mg/dL (0.0-1.0); TOTAL PROTEIN, SERUM 6.3 g/dL (6.4-8.3)
[2023-10-02] MEDS: CALCIUM ACETATE 667 MG CAP GT SCH (06:26)
[2023-10-02] MEDS: NORMAL SALINE 5 ML DISP.SYRIN IVF SCH (06:26)
[2023-10-02] MEDS: ISOSORBIDE MONONITRATE 30 MG TAB.ER.24H PO SCH (08:55)
[2023-10-02] MEDS: hydrALAZINE HCL 25 MG TABLET PO SCH (09:00)
[2023-10-02] MEDS: CYCLOBENZAPRINE HCL 10 MG TABLET (FLEXERIL) PO SCH (09:00)
[2023-10-02] MEDS ORDERED: METOPROLOL SUCCINATE 50 MG TAB.SR.24H (TOPROL XL) PO SCH (09:00)
[2023-10-02] MEDS ORDERED: CEFPODOXIME 200 MG PO SCH (09:00)
[2023-10-02] MEDS: NEPHROVITE, (FOLIC ACID/VITAMIN B COMP W-C 1 TAB) PO SCH (09:01)
[2023-10-02] MEDS: CARVEDILOL 12.5 MG TABLET (COREG) PO SCH (09:02)
[2023-10-02] MEDS: NIFEdipine 30 MG TAB.ER.24 PO SCH (09:03)
[2023-10-02] MEDS: TAMSULOSIN HCL 0.4 MG CAP PO SCH (09:03)
[2023-10-02] MEDS: CALCIUM GLUC 2 GM/100ML-NACL 100 ML IV ONE (10:00)
[2023-10-02] MEDS: HYDROcodone/ACETAMIN 5-325 MG TAB (NORCO/ VICODIN) PO PRN (11:36)
[2023-10-02 23:34] LABS: BILIRUBIN,URINE NEGATIVE (NEGATIVE); CLARITY/URINE CLOUDY (CLEAR); COLOR,URINE YELLOW (YELLOW); GLUCOSE,URINE NEGATIVE (NEGATIVE); KETONES,URINE TRACE (NEGATIVE); LEUKOCYTE ESTERASE ,URINE 2+ (NEGATIVE); NITRITE, URINE NEGATIVE (NEGATIVE); PH,URINE 7.5 (5.0-8.0); PROTEIN URINE 3+ (NEGATIVE); UROBILINOGEN,URINE 0.2 (0.2-1.0)
[2023-10-03] VITALS (21 sets, daily range): BP systolic 97–123; PULSE 81–102; RESP 11–22; TEMP 97.4–100; O2SAT 90–98
[2023-10-03 00:06] LABS: BLOOD, URINE TRACE (NEGATIVE)
[2023-10-03 00:14] LABS: WBC,URINE 80-100 /HPF (0-3)
[2023-10-03 00:20] LABS: BACTERIA,URINE MANY /HPF (None Seen)
[2023-10-03 04:33] LABS: BASOPHILS % (AUTO) 0.2 % (0.0-2.0); EOSINOPHILS # (AUTO) 0.1 K/uL (0.0-0.4); EOSINOPHILS % (AUTO) 0.7 % (0.0-4.0); HEMATOCRIT 26.8 % (36-54); HEMOGLOBIN 9.3 g/dL (14.0-18.0); LYMPHOCYTES # (AUTO) 1.1 K/uL (1.0-5.5); LYMPHOCYTES % (AUTO) 13.6 % (20.5-51.5); MEAN CORPUSCULAR HEMOGLOBIN 33 pg (27-31); MEAN CORPUSCULAR HGB CONC 35 % (32-36); MEAN CORPUSCULAR VOLUME 95 fL (79.0-98.0); MONOCYTES # (AUTO) 1.1 K/uL (0.0-1.0); NEUTROPHILS # (AUTO) 5.8 K/uL (1.8-7.7); NEUTROPHILS % (AUTO) 71.5 % (40.0-70.0); PLATELET COUNT (AUTO) 119 K/uL (130-430); RED BLOOD CELL COUNT(AUTO) 2.83 MIL/uL (4.2-6.2); RED CELL DISTRIBUTION WIDTH 13.7 % (9.0-15.0); WHITE BLOOD COUNT (AUTO) 8.1 K/uL (4.8-10.8)
[2023-10-03 05:06] LABS: CALCIUM 7.9 mg/dL (8.4-11.0); CREATININE 5.97 mg/dL (0.55-1.30); PHOSPHORUS 3.8 mg/dL (2.7-4.5); POTASSIUM 4.2 mmol/L (3.5-5.1)
[2023-10-03] MEDS: cefTRIAXone 1 GM in D5W 50 ML IV SCH (10:14)
[2023-10-03] MEDS: CALCIUM GLUC 2 GM/100ML-NACL 100 ML IV ONE (10:17)
[2023-10-03] MEDS ORDERED: VANCOMYCIN HCL 1 GM/NS PREMIX 250 ML IV ONE (22:30)
[2023-10-04] VITALS (7 sets, daily range): BP systolic 121–140; PULSE 79–94; RESP 14–18; TEMP 97.1–99; O2SAT 92–100
[2023-10-04] MEDS: VANCOMYCIN HCL 1000 MG/VIAL IV ONE (00:17)
[2023-10-04] MEDS: VANCOMYCIN HCL 1,000 MG in NS 250 ML IV ONE (00:33)
[2023-10-04 09:01] LABS: BASOPHILS % (AUTO) 0.3 % (0.0-2.0); EOSINOPHILS # (AUTO) 0.1 K/uL (0.0-0.4); EOSINOPHILS % (AUTO) 1.2 % (0.0-4.0); HEMOGLOBIN 9.7 g/dL (14.0-18.0); LYMPHOCYTES # (AUTO) 0.9 K/uL (1.0-5.5); MEAN CORPUSCULAR HEMOGLOBIN 33 pg (27-31); MEAN CORPUSCULAR HGB CONC 35 % (32-36); MEAN CORPUSCULAR VOLUME 95 fL (79.0-98.0); MONOCYTES # (AUTO) 1.1 K/uL (0.0-1.0); MONOCYTES % (AUTO) 19.3 % (1.7-9.3); NEUTROPHILS # (AUTO) 3.8 K/uL (1.8-7.7); NEUTROPHILS % (AUTO) 64.2 % (40.0-70.0); PLATELET COUNT (AUTO) 127 K/uL (130-430); RED BLOOD CELL COUNT(AUTO) 2.96 MIL/uL (4.2-6.2); RED CELL DISTRIBUTION WIDTH 13.6 % (9.0-15.0)
[2023-10-04 09:16] LABS: ERYTHROCYTE SEDIMENTATION RATE 27 MM/HR (0-15)
[2023-10-04 09:47] LABS: CALCIUM 7.8 mg/dL (8.4-11.0); CREATININE 4.69 mg/dL (0.55-1.30); TOTAL BILIRUBIN 0.4 mg/dL (0.0-1.0); TOTAL PROTEIN, SERUM 6.2 g/dL (6.4-8.3)
[2023-10-04] MEDS: guaiFENesin/DEXTROMETHORPHAN 10 ML UDC PO PRN (18:15)
[2023-10-04] MEDS: DAPTOmycin 350 MG in NS 50 ML IV SCH (18:23)
[2023-10-05] VITALS: BP_SYST 109; PULSE 86; RESP 18; TEMP 98.4; O2SAT 96
[2023-10-05 05:06] LABS: ERYTHROCYTE SEDIMENTATION RATE 9 MM/HR (0-15)
[2023-10-05 05:12] LABS: BASOPHILS % (AUTO) 0.3 % (0.0-2.0); EOSINOPHILS # (AUTO) 0.2 K/uL (0.0-0.4); EOSINOPHILS % (AUTO) 2.9 % (0.0-4.0); HEMATOCRIT 26.2 % (36-54); LYMPHOCYTES # (AUTO) 1.2 K/uL (1.0-5.5); LYMPHOCYTES % (AUTO) 19.5 % (20.5-51.5); MEAN CORPUSCULAR HEMOGLOBIN 33 pg (27-31); MEAN CORPUSCULAR HGB CONC 34 % (32-36); MEAN CORPUSCULAR VOLUME 95 fL (79.0-98.0); MONOCYTES # (AUTO) 1.3 K/uL (0.0-1.0); NEUTROPHILS # (AUTO) 3.7 K/uL (1.8-7.7); NEUTROPHILS % (AUTO) 57.3 % (40.0-70.0); PLATELET COUNT (AUTO) 126 K/uL (130-430); RED BLOOD CELL COUNT(AUTO) 2.75 MIL/uL (4.2-6.2); RED CELL DISTRIBUTION WIDTH 13.7 % (9.0-15.0); WHITE BLOOD COUNT (AUTO) 6.4 K/uL (4.8-10.8)
[2023-10-05 05:48] LABS: CALCIUM 7.7 mg/dL (8.4-11.0); CREATININE 5.2 mg/dL (0.55-1.30); PHOSPHORUS 3.4 mg/dL (2.7-4.5)
[2023-10-05 07:50] VITALS: BP_SYST 115; PULSE 88; RESP 16; TEMP 97.6; O2SAT 94
[2023-10-05 08:13] LABS: VANCOMYCIN,RANDOM 11.9 ug/mL (20.0-30.0)
[2023-10-05 08:30] VITALS: O2SAT 95
[2023-10-05 12:51] VITALS: BP_SYST 111; PULSE 77; RESP 17; TEMP 97.8; O2SAT 97
[2023-10-05] MEDS: HEPARIN SODIUM, PORCINE 10,000 UNITS/ 10 ML VIAL MC ONE (14:00)
[2023-10-05] MEDS: LIDOCAINE HCL/PF 1% 10 ML AMPUL INJ ONE (14:30)
[2023-10-05 16:17] VITALS: BP_SYST 103; PULSE 87; RESP 18; TEMP 97.7; O2SAT 98
[2023-10-05 20:00] VITALS: BP_SYST 101; PULSE 86; RESP 18; TEMP 97.8; O2SAT 95
[2023-10-06 00:20] VITALS: BP_SYST 100; PULSE 80; RESP 18; TEMP 97; O2SAT 95
[2023-10-06 06:34] LABS: BASOPHILS % (AUTO) 0.4 % (0.0-2.0); EOSINOPHILS # (AUTO) 0.2 K/uL (0.0-0.4); EOSINOPHILS % (AUTO) 3.7 % (0.0-4.0); HEMATOCRIT 27.9 % (36-54); HEMOGLOBIN 9.4 g/dL (14.0-18.0); LYMPHOCYTES # (AUTO) 1.5 K/uL (1.0-5.5); LYMPHOCYTES % (AUTO) 28.7 % (20.5-51.5); MEAN CORPUSCULAR HEMOGLOBIN 32 pg (27-31); MEAN CORPUSCULAR HGB CONC 34 % (32-36); MEAN CORPUSCULAR VOLUME 95 fL (79.0-98.0); MONOCYTES # (AUTO) 0.8 K/uL (0.0-1.0); MONOCYTES % (AUTO) 14.9 % (1.7-9.3); NEUTROPHILS # (AUTO) 2.7 K/uL (1.8-7.7); NEUTROPHILS % (AUTO) 52.3 % (40.0-70.0); PLATELET COUNT (AUTO) 157 K/uL (130-430); RED BLOOD CELL COUNT(AUTO) 2.93 MIL/uL (4.2-6.2); RED CELL DISTRIBUTION WIDTH 13.7 % (9.0-15.0); WHITE BLOOD COUNT (AUTO) 5.1 K/uL (4.8-10.8)
[2023-10-06 07:05] LABS: CALCIUM 7.7 mg/dL (8.4-11.0); CREATININE 3.58 mg/dL (0.55-1.30); PHOSPHORUS 3.1 mg/dL (2.7-4.5); POTASSIUM 4.1 mmol/L (3.5-5.1)
[2023-10-06 07:24] LABS: ERYTHROCYTE SEDIMENTATION RATE 18 MM/HR (0-15)
[2023-10-06 07:30] VITALS: BP_SYST 117; RESP 16; TEMP 98.2; O2SAT 97
[2023-10-06 08:30] VITALS: O2SAT 97
[2023-10-06 12:25] VITALS: BP_SYST 124; PULSE 82; RESP 18; TEMP 97.2; O2SAT 99
[2023-10-06 16:47] VITALS: BP_SYST 110; PULSE 79; RESP 16; TEMP 98; O2SAT 98
[2023-10-06 20:00] VITALS: BP_SYST 101; PULSE 80; RESP 16; TEMP 97.6; O2SAT 98
[2023-10-07] VITALS (7 sets, daily range): BP systolic 101–128; PULSE 76–87; RESP 16–21; TEMP 97–98.5; O2SAT 97–100
[2023-10-07 07:17] LABS: BASOPHILS % (AUTO) 0.5 % (0.0-2.0); EOSINOPHILS # (AUTO) 0.2 K/uL (0.0-0.4); HEMATOCRIT 27.5 % (36-54); HEMOGLOBIN 9.3 g/dL (14.0-18.0); LYMPHOCYTES # (AUTO) 1.6 K/uL (1.0-5.5); LYMPHOCYTES % (AUTO) 21.5 % (20.5-51.5); MEAN CORPUSCULAR HEMOGLOBIN 32 pg (27-31); MEAN CORPUSCULAR HGB CONC 34 % (32-36); MEAN CORPUSCULAR VOLUME 96 fL (79.0-98.0); MONOCYTES # (AUTO) 0.8 K/uL (0.0-1.0); MONOCYTES % (AUTO) 10.8 % (1.7-9.3); NEUTROPHILS # (AUTO) 4.6 K/uL (1.8-7.7); NEUTROPHILS % (AUTO) 64.2 % (40.0-70.0); PLATELET COUNT (AUTO) 205 K/uL (130-430); RED BLOOD CELL COUNT(AUTO) 2.87 MIL/uL (4.2-6.2); RED CELL DISTRIBUTION WIDTH 13.8 % (9.0-15.0); WHITE BLOOD COUNT (AUTO) 7.2 K/uL (4.8-10.8)
[2023-10-07 07:30] LABS: ERYTHROCYTE SEDIMENTATION RATE 21 MM/HR (0-15)
[2023-10-07 07:40] LABS: CALCIUM 7.9 mg/dL (8.4-11.0); CREATININE 4.91 mg/dL (0.55-1.30); PHOSPHORUS 3.4 mg/dL (2.7-4.5); POTASSIUM 4.5 mmol/L (3.5-5.1); TOTAL BILIRUBIN 0.3 mg/dL (0.0-1.0); TOTAL PROTEIN, SERUM 6.2 g/dL (6.4-8.3)
[2023-10-07] MEDS: MIDAZOLAM HCL 5 MG/5 ML VIAL ONE (12:38)
[2023-10-07] MEDS ORDERED: fentaNYL CITRATE/PF 100 MCG/2 ML AMP ONE (12:40)
[2023-10-08] VITALS (8 sets, daily range): BP systolic 117–168; PULSE 75–101; RESP 16–22; TEMP 97.2–98.6; O2SAT 96–100
[2023-10-08 05:48] LABS: BASOPHILS # (AUTO) 0.1 K/uL (0.0-0.2); BASOPHILS % (AUTO) 0.5 % (0.0-2.0); EOSINOPHILS # (AUTO) 0.2 K/uL (0.0-0.4); EOSINOPHILS % (AUTO) 2.6 % (0.0-4.0); HEMATOCRIT 26.9 % (36-54); HEMOGLOBIN 9.1 g/dL (14.0-18.0); LYMPHOCYTES # (AUTO) 1.6 K/uL (1.0-5.5); LYMPHOCYTES % (AUTO) 17.1 % (20.5-51.5); MEAN CORPUSCULAR HEMOGLOBIN 32 pg (27-31); MEAN CORPUSCULAR HGB CONC 34 % (32-36); MEAN CORPUSCULAR VOLUME 96 fL (79.0-98.0); MONOCYTES # (AUTO) 0.6 K/uL (0.0-1.0); MONOCYTES % (AUTO) 6.6 % (1.7-9.3); NEUTROPHILS % (AUTO) 73.2 % (40.0-70.0); PLATELET COUNT (AUTO) 264 K/uL (130-430); RED CELL DISTRIBUTION WIDTH 13.7 % (9.0-15.0); WHITE BLOOD COUNT (AUTO) 9.5 K/uL (4.8-10.8)
[2023-10-08 06:03] LABS: ALBUMIN 1.9 g/dL (3.4-4.8); CREATININE 5.35 mg/dL (0.55-1.30); POTASSIUM 4.5 mmol/L (3.5-5.1); TOTAL BILIRUBIN 0.3 mg/dL (0.0-1.0); TOTAL PROTEIN, SERUM 6.1 g/dL (6.4-8.3)
[2023-10-08 08:21] LABS: BILIRUBIN,URINE NEGATIVE (NEGATIVE); CLARITY/URINE CLEAR (CLEAR); COLOR,URINE YELLOW (YELLOW); GLUCOSE,URINE NEGATIVE (NEGATIVE); KETONES,URINE NEGATIVE (NEGATIVE); LEUKOCYTE ESTERASE ,URINE 3+ (NEGATIVE); NITRITE, URINE NEGATIVE (NEGATIVE); PROTEIN URINE 2+ (NEGATIVE); UROBILINOGEN,URINE 0.2 (0.2-1.0)
[2023-10-08 08:29] LABS: BLOOD, URINE TRACE (NEGATIVE)
[2023-10-08 08:41] LABS: BACTERIA,URINE FEW /HPF (None Seen); MUCUS,URINE 1+ /LPF (None Seen); WBC,URINE 20-50 /HPF (0-3)
[2023-10-08] MEDS ORDERED: EPOETIN ALFA-EPBX 4,000 UNITS/ML VIAL SUBCUT PRN (17:00)
[2023-10-08] MEDS ORDERED: fentaNYL CITRATE/PF 100 MCG/2 ML AMP ONE (17:37)
[2023-10-08] MEDS ORDERED: MIDAZOLAM HCL 5 MG/5 ML VIAL ONE (17:37)
[2023-10-08] MEDS ORDERED: HEPARIN SODIUM,PORCINE 5,000 UNITS/ML VIAL MC ONE (18:00)
[2023-10-08] MEDS ORDERED: RACEPINEPHRINE HCL 0.5 ML VIAL.NEB INH ONE (18:45)
[2023-10-08] MEDS ORDERED: hydrALAZINE HCL 20 MG/ML VIAL IVP ONE (18:45)
[2023-10-08] MEDS: RACEPINEPHRINE HCL 0.5 ML VIAL.NEB INH ONE (18:49)
[2023-10-08 18:55] LABS: ABG O2 SAT% ESTIMATE 99.3 % (94.0-100.0); ALLEN'S TEST POSITIVE (P); BLOOD GAS BASE EXCESS 0.6 mmol/L (-3.0-3.0); BLOOD GAS HCO3 21.2 mmol/L (21.0-27.0); BLOOD GAS PCO2 21.9 mmHg (32.0-45.0); BLOOD GAS PH 7.604 (7.350-7.450); BLOOD GAS PO2 147.8 mmHg (75.0-100.0)
[2023-10-08] MEDS: ceFAZolin SODIUM 1 GM in D5W 50 ML IV SCH (21:53)
[2023-10-09] VITALS (8 sets, daily range): BP systolic 115–144; PULSE 82–91; RESP 16–22; TEMP 96.4–98.6; O2SAT 93–99
[2023-10-09 07:19] LABS: BASOPHILS % (AUTO) 0.4 % (0.0-2.0); EOSINOPHILS # (AUTO) 0.2 K/uL (0.0-0.4); HEMOGLOBIN 8.5 g/dL (14.0-18.0); LYMPHOCYTES # (AUTO) 1.4 K/uL (1.0-5.5); LYMPHOCYTES % (AUTO) 14.3 % (20.5-51.5); MEAN CORPUSCULAR HEMOGLOBIN 33 pg (27-31); MEAN CORPUSCULAR HGB CONC 34 % (32-36); MEAN CORPUSCULAR VOLUME 96 fL (79.0-98.0); MONOCYTES # (AUTO) 0.7 K/uL (0.0-1.0); MONOCYTES % (AUTO) 6.9 % (1.7-9.3); NEUTROPHILS # (AUTO) 7.5 K/uL (1.8-7.7); NEUTROPHILS % (AUTO) 76.4 % (40.0-70.0); PLATELET COUNT (AUTO) 305 K/uL (130-430); RED BLOOD CELL COUNT(AUTO) 2.61 MIL/uL (4.2-6.2); RED CELL DISTRIBUTION WIDTH 14.1 % (9.0-15.0); WHITE BLOOD COUNT (AUTO) 9.9 K/uL (4.8-10.8)
[2023-10-09 08:02] LABS: CALCIUM 8.2 mg/dL (8.4-11.0); CREATININE 5.93 mg/dL (0.55-1.30); POTASSIUM 4.7 mmol/L (3.5-5.1); TOTAL BILIRUBIN 0.2 mg/dL (0.0-1.0); TOTAL PROTEIN, SERUM 6.3 g/dL (6.4-8.3)
[2023-10-09] MEDS ORDERED: NAFCILLIN SODIUM 2 GM in NS 100 ML IV SCH (12:15)
[2023-10-09] MEDS ORDERED: *HEPARIN PER PHARMACY XX ONE (13:30)
[2023-10-09] MEDS: HEPARIN SODIUM, PORCINE 10,000 UNITS/ 10 ML VIAL MC ONE (13:53)
[2023-10-09] MEDS: NAFCILLIN SODIUM 2 GM in NS 100 ML IV SCH (15:32)
[2023-10-09] MEDS: CALCIUM ACETATE 667 MG CAP PO SCH (16:43)
[2023-10-09] MEDS: EPOETIN ALFA-EPBX 4,000 UNITS/ML VIAL SUBCUT PRN (17:01)
[2023-10-10 01:48] VITALS: BP_SYST 114; PULSE 87; RESP 18; TEMP 97.8; O2SAT 96
[2023-10-10 04:00] VITALS: BP_SYST 104; PULSE 67; RESP 17; TEMP 97.8; O2SAT 99
[2023-10-10 05:49] LABS: BASOPHILS % (AUTO) 0.4 % (0.0-2.0); EOSINOPHILS # (AUTO) 0.2 K/uL (0.0-0.4); EOSINOPHILS % (AUTO) 2.3 % (0.0-4.0); HEMATOCRIT 25.7 % (36-54); HEMOGLOBIN 8.7 g/dL (14.0-18.0); LYMPHOCYTES # (AUTO) 1.7 K/uL (1.0-5.5); LYMPHOCYTES % (AUTO) 19.3 % (20.5-51.5); MEAN CORPUSCULAR HEMOGLOBIN 33 pg (27-31); MEAN CORPUSCULAR HGB CONC 34 % (32-36); MEAN CORPUSCULAR VOLUME 96 fL (79.0-98.0); MONOCYTES # (AUTO) 0.6 K/uL (0.0-1.0); MONOCYTES % (AUTO) 7.2 % (1.7-9.3); NEUTROPHILS # (AUTO) 6.1 K/uL (1.8-7.7); NEUTROPHILS % (AUTO) 70.8 % (40.0-70.0); PLATELET COUNT (AUTO) 263 K/uL (130-430); RED BLOOD CELL COUNT(AUTO) 2.66 MIL/uL (4.2-6.2); WHITE BLOOD COUNT (AUTO) 8.6 K/uL (4.8-10.8)
[2023-10-10 06:16] LABS: ALBUMIN 2.1 g/dL (3.4-4.8); CREATININE 4.51 mg/dL (0.55-1.30); POTASSIUM 4.5 mmol/L (3.5-5.1); TOTAL BILIRUBIN 0.7 mg/dL (0.0-1.0); TOTAL PROTEIN, SERUM 6.5 g/dL (6.4-8.3)
[2023-10-10 08:15] VITALS: BP_SYST 118; PULSE 72; RESP 18; TEMP 97.9; O2SAT 97
[2023-10-10 10:31] VITALS: O2SAT 97
[2023-10-10 11:28] VITALS: BP_SYST 107; PULSE 80; RESP 16; TEMP 98.2; O2SAT 97
[2023-10-10 20:00] VITALS: BP_SYST 125; PULSE 88; RESP 18; TEMP 98; O2SAT 98
[2023-10-10] MEDS: INSULIN GLARGINE 100 UNITS/ML, 10 ML VIAL SUBCUT SCH (20:49)
[2023-10-11 00:09] VITALS: BP_SYST 118; PULSE 87; RESP 17; TEMP 97.9; O2SAT 99
[2023-10-11 08:00] VITALS: O2SAT 100
[2023-10-11 08:49] VITALS: BP_SYST 163; TEMP 96; O2SAT 100
[2023-10-11 11:33] LABS: BASOPHILS % (AUTO) 0.5 % (0.0-2.0); EOSINOPHILS # (AUTO) 0.2 K/uL (0.0-0.4); EOSINOPHILS % (AUTO) 2.2 % (0.0-4.0); HEMATOCRIT 27.2 % (36-54); LYMPHOCYTES # (AUTO) 1.5 K/uL (1.0-5.5); MEAN CORPUSCULAR HEMOGLOBIN 32 pg (27-31); MEAN CORPUSCULAR HGB CONC 33 % (32-36); MEAN CORPUSCULAR VOLUME 97 fL (79.0-98.0); MONOCYTES # (AUTO) 0.7 K/uL (0.0-1.0); MONOCYTES % (AUTO) 7.1 % (1.7-9.3); NEUTROPHILS # (AUTO) 7.5 K/uL (1.8-7.7); NEUTROPHILS % (AUTO) 75.2 % (40.0-70.0); PLATELET COUNT (AUTO) 307 K/uL (130-430); RED CELL DISTRIBUTION WIDTH 14.5 % (9.0-15.0)
[2023-10-11 11:41] LABS: ALBUMIN 2.4 g/dL (3.4-4.8); CREATININE 5.45 mg/dL (0.55-1.30); POTASSIUM 5.1 mmol/L (3.5-5.1); TOTAL BILIRUBIN 0.8 mg/dL (0.0-1.0)
[2023-10-11 12:00] VITALS: BP_SYST 137; PULSE 84; RESP 18; TEMP 96.6; O2SAT 100
[2023-10-11] MEDS ORDERED: NALOXONE HCL 0.4 MG/ML AMP (NARCAN) IVP PRN (15:15)
[2023-10-11 16:00] VITALS: BP_SYST 154; PULSE 83; RESP 18; TEMP 96.7; O2SAT 99
[2023-10-11] MEDS ORDERED: INSU100V9 SUBCUT (16:52)
[2023-10-11] MEDS ORDERED: INSU100V7 SUBCUT (16:52)
[2023-10-11] MEDS: SODIUM ZIRCONIUM CYCLOSILICATE 10 GM POWD.PACK PO ONE (18:05)
[2023-10-11] MEDS: HYDROcodone/ACETAMIN 5-325 MG TAB (NORCO/ VICODIN) PO PRN (18:05)
== END 2023-10-11 20:15 | DRG 314 ==
LOC: SED 15:20 → SIC 16:51 → STU 10-03 22:42 → SIC 10-03 23:45 → STU 10-04 05:25 → SMU 10-04 12:28
PROVIDERS: ADMIT Preventive Medicine Preventive Medicine/Occupational Environmental Medicine; ATTEND Specialist
PROC: 5A1D70Z Performance of Urinary Filtration, Intermittent, Less than 6 Hours Per Day (ICD-10-PCS; 2023-10-03)
PROC: 5A1D70Z Performance of Urinary Filtration, Intermittent, Less than 6 Hours Per Day (ICD-10-PCS; 2023-10-05)
PROC: 05PYX3Z Removal of Infusion Device from Upper Vein, External Approach (ICD-10-PCS; 2023-10-05)
PROC: B24BZZ4 Ultrasonography of Heart with Aorta, Transesophageal (ICD-10-PCS; 2023-10-07)
PROC: 05HN33Z Insertion of Infusion Device into Left Internal Jugular Vein, Percutaneous Approach (ICD-10-PCS; 2023-10-08)
PROC: B544ZZA Ultrasonography of Left Jugular Veins, Guidance (ICD-10-PCS; 2023-10-08)
PROC: 5A1D70Z Performance of Urinary Filtration, Intermittent, Less than 6 Hours Per Day (ICD-10-PCS; principal; 2023-10-09)
DX: T80.211A Bloodstream infection due to central venous catheter, initial encounter (principal); A41.9 Sepsis, unspecified organism; N18.6 End stage renal disease; I33.9 Acute and subacute endocarditis, unspecified; I13.2 Hypertensive heart and chronic kidney disease with heart failure and with stage 5 chronic kidney disease, or end stage renal disease; I50.32 Chronic diastolic (congestive) heart failure; E87.1 Hypo-osmolality and hyponatremia; N17.9 Acute kidney failure, unspecified; N39.0 Urinary tract infection, site not specified; G93.49 Other encephalopathy; B95.61 Methicillin susceptible Staphylococcus aureus infection as the cause of diseases classified elsewhere; D63.1 Anemia in chronic kidney disease; D69.6 Thrombocytopenia, unspecified; Y84.8 Other medical procedures as the cause of abnormal reaction of the patient, or of later complication, without mention of misadventure at the time of the procedure; E83.51 Hypocalcemia; I25.10 Atherosclerotic heart disease of native coronary artery without angina pectoris; E78.5 Hyperlipidemia, unspecified; N40.0 Benign prostatic hyperplasia without lower urinary tract symptoms; E11.40 Type 2 diabetes mellitus with diabetic neuropathy, unspecified; I35.8 Other nonrheumatic aortic valve disorders; E11.22 Type 2 diabetes mellitus with diabetic chronic kidney disease; B96.4 Proteus (mirabilis) (morganii) as the cause of diseases classified elsewhere; B96.89 Other specified bacterial agents as the cause of diseases classified elsewhere; E11.65 Type 2 diabetes mellitus with hyperglycemia; Z99.2 Dependence on renal dialysis; Z79.899 Other long term (current) drug therapy
CPT/HCPCS: 36415; 36600; 71045; 72040; 80048; 80053; 80076; 80202; 81000; 81001; 81015; 82803; 82948; 83037; 83735; 84100; 84484; 85025; 85610; 85651; 85730; 87040; 87081; 87086; 87186; 90935; 90937; 93005; 93306; 93312; 94640; 94760; 97110-GP; 97112-GP; 97116-GP; 97530-GP; 99291; J0360; J0690; J0696; J0878; J1644; J1815; J2001; J2250; J2270; J3010; J3370; J3490; J7050; J7060; Q5106